=== PATIENT | female | born 1965 | race Caucasian/White ===

== ENCOUNTER 2018-02-06 12:13 | Emergency (ER) | payer SELFPAY ==
[2018-02-06 12:26] VITALS: BP 116/66; PULSE 71; RESP 16; TEMP 36.6; O2SAT 98
--- NOTE | 2018-02-06 12:52 | ED.GENADUL ---
Disposition Clinical Impression: Dental infection Disposition: HOME Condition: Stable Instructions: Dental Abscess (ED) Additional Instructions: Return immediately if you have any difficulty breathing, swallowing, high fever chills, swelling to your tongue or back of her mouth. Otherwise take antibiotics as prescribed and until fully gone and follow up with a dental provider in the next week. If you are unable to follow-up with the dental provider have your primary care provider's reassess you to ensure that you are improving. Prescriptions: Ibuprofen 600 mg PO Q6H PRN #20 tablet PRN Reason: Pain Penicillin V Potassium [Betapen-Vk] 500 mg PO QID #28 tab Referrals: Ale Walls, SEMICONDUCTOR WAFER INSPECTOR [Primary Care Provider] - (As needed for reassessment and if not able to obtain dental appointment.) Forms: Work Release Medical Decision Making - Medical Decision Making pt presenting to the emergency department for complaint of dental pain and swelling of her face that has been going on for last 24 hours. Patient has poor dentition throughout the entirety of oral cavity and area of concern is tooth #11 that has erythema to the base of the tooth, no significant swelling or fluctuance, and tenderness to palpation of that tooth. There is concern for infection so patient placed on penicillin and prescribed ibuprofen. Patient encouraged to follow-up with the dentist in the next week or her primary care provider for reassessment if unable to obtain dental appointment. Patient was given a dental list along with a work note. Patient was offered a dental block but denied at this time. After discussion of diagnosis and plan of care with patient patient agreed and stated no further needs, questions, or concerns at this time. History of Present Illness - General Chief complaint: DentalOral Stated complaint: TOOTH INFECTION Time Seen by Provider: 02/06/18 12:51 Source: patient, RN notes reviewed Mode of arrival: ambulatory Limitations: no limitations - History of Present Illness Initial comments: Patient reports yesterday evening she started having some dental pain to the front of her mouth. She states that she has previously had dental infections which penicillin has helped resolve the swelling pain and redness. She states very poor dentition for a while but lack of funding and resources to get her teeth taken care of. Patient denies any fever chills, difficulty breathing or swallowing. Patient does state that she has noted the left side of her face become slightly swollen and 1 of her tooth that has some cavities alongside a tooth that is missing due to being broken off becoming more painful and some redness surrounding the tooth. Onset/Timin -: days(s) Location: mouth Severity scale (1-10): 7 Quality: aching Consistency: constant Improves with: none Worsens with: none Associated Symptoms: denies other symptoms Treatments Prior to Arrival: NSAID - Related Data Blood Sugar Diagnostic [[employer] Playertouch Ultra Blue Test Strp] 1 strip MC DAILY #100 strip 02/24/16 Lancets [Watchupuch Lancets] 1 each ID DAILY #100 each 02/24/16 Citalopram Hydrobromide [Celexa] 1 tab PO DAILY #90 tab 11/16/16 Lisinopril 2.5 mg PO DAILY #30 tab-cap 11/16/16 Metformin HCl [Glucophage] 1 - 2 tab PO BID #270 tab 11/16/16 Omeprazole 20 mg PO DAILY #90 tab-cap 11/16/16 Fluticasone Propionate [Flonase] 1 spray NS BID #1 bottle 02/15/17 Ibuprofen 600 mg PO Q6H PRN #20 tablet 02/06/18 Penicillin V Potassium [Betapen-Vk] 500 mg PO QID #28 tab 02/06/18 Allergies Allergy/AdvReac Type Severity Reaction Status Date / Time No Known Allergies Allergy Unverified 02/06/18 12:31 Review of Systems Constitutional: denies: chills, fever, malaise ENT: dental pain. denies: throat pain, congestion Respiratory: denies: cough, stridor, wheezing Cardiovascular: denies: chest pain Comment: All other systems reviewed and negative Past Medical History - Past Medical History Medical history: diabetes, GERD Surgical history: cholecystectomy, bilateral tubal ligation, hysterectomy Family history: CAD/LA, diabetes - Social History Smoking status: never smoker Alcohol use: none Drug use: none Living Situation: lives with family General Exam - General Limitations: no limitations General appearance: alert, in no apparent distress - Head Head exam: Present: atraumatic - Eye Eye exam: Present: normal apperance - ENT ENT exam: Present: mucous membranes moist - Expanded ENT Exam No standard instances Mouth exam: Present: tongue normal. Absent: drooling, trismus, muffled voice, tongue elevation Teeth exam: Present: dental caries (Throughout entire oral cavity), fractured tooth # (10. With multiple other fracture or missing teeth), dental tenderness # (11), other (Erythema and mild edema surrounding tooth #1011, no fluctuance noted) Throat exam: normal inspection. negative: R peritonsillar mass, L peritonsillar mass - Neck Neck exam: Present: normal inspection. Absent: tenderness, meningismus, full ROM, lymphadenopathy - Respiratory Respiratory exam: Present: normal lung sounds bilaterally. Absent: respiratory distress, wheezes, rales, rhonchi, stridor - Cardiovascular Cardiovascular Exam: Present: regular rate, normal rhythm, normal heart sounds - Neurological Exam Neurological exam: Present: alert, oriented X3. Absent: altered - Skin Skin exam: Present: warm, dry Course Vital Signs - 24 hr 08//18 12:26 Temperature 36.6 C Pulse 71 Respiratory 16 Rate Blood Pressure 116/66 Pulse Oximetry 98
--- NOTE | 2018-02-06 12:55 | ED.GENADUL_ITS ---
Disposition Clinical Impression: Dental infection Disposition: HOME Condition: Stable Instructions: Dental Abscess (ED) Additional Instructions: Return immediately if you have any difficulty breathing, swallowing, high fever chills, swelling to your tongue or back of her mouth. Otherwise take antibiotics as prescribed and until fully gone and follow up with a dental provider in the next week. If you are unable to follow-up with the dental provider have your primary care provider's reassess you to ensure that you are improving. Prescriptions: Ibuprofen 600 mg PO Q6H PRN #20 tablet PRN Reason: Pain Penicillin V Potassium [Betapen-Vk] 500 mg PO QID #28 tab Referrals: Ale Walls, WATER TREATMENT PLANT OPERATOR [Primary Care Provider] - (As needed for reassessment and if not able to obtain dental appointment.) Forms: Work Release Medical Decision Making - Medical Decision Making pt presenting to the emergency department for complaint of dental pain and swelling of her face that has been going on for last 24 hours. Patient has poor dentition throughout the entirety of oral cavity and area of concern is tooth #11 that has erythema to the base of the tooth, no significant swelling or fluctuance, and tenderness to palpation of that tooth. There is concern for infection so patient placed on penicillin and prescribed ibuprofen. Patient encouraged to follow-up with the dentist in the next week or her primary care provider for reassessment if unable to obtain dental appointment. Patient was given a dental list along with a work note. Patient was offered a dental block but denied at this time. After discussion of diagnosis and plan of care with patient patient agreed and stated no further needs, questions, or concerns at this time. History of Present Illness - General Chief complaint: DentalOral Stated complaint: TOOTH INFECTION Time Seen by Provider: 02/06/18 12:51 Source: patient, RN notes reviewed Mode of arrival: ambulatory Limitations: no limitations - History of Present Illness Initial comments: Patient reports yesterday evening she started having some dental pain to the front of her mouth. She states that she has previously had dental infections which penicillin has helped resolve the swelling pain and redness. She states very poor dentition for a while but lack of funding and resources to get her teeth taken care of. Patient denies any fever chills, difficulty breathing or swallowing. Patient does state that she has noted the left side of her face become slightly swollen and 1 of her tooth that has some cavities alongside a tooth that is missing due to being broken off becoming more painful and some redness surrounding the tooth. Onset/Timin -: days(s) Location: mouth Severity scale (1-10): 7 Quality: aching Consistency: constant Improves with: none Worsens with: none Associated Symptoms: denies other symptoms Treatments Prior to Arrival: NSAID - Related Data Blood Sugar Diagnostic [Chimerixtouch Ultra Blue Test Strp] 1 strip MC DAILY #100 strip 02/24/16 Lancets [Replication Medicaluch Lancets] 1 each ID DAILY #100 each 02/24/16 Citalopram Hydrobromide [Celexa] 1 tab PO DAILY #90 tab 11/16/16 Lisinopril 2.5 mg PO DAILY #30 tab-cap 11/16/16 Metformin HCl [Glucophage] 1 - 2 tab PO BID #270 tab 11/16/16 Omeprazole 20 mg PO DAILY #90 tab-cap 11/16/16 Fluticasone Propionate [Flonase] 1 spray NS BID #1 bottle 02/15/17 Ibuprofen 600 mg PO Q6H PRN #20 tablet 02/06/18 Penicillin V Potassium [Betapen-Vk] 500 mg PO QID #28 tab 02/06/18 Allergies Allergy/AdvReac Type Severity Reaction Status Date / Time No Known Allergies Allergy Unverified 02/06/18 12:31 Review of Systems Constitutional: denies: chills, fever, malaise ENT: dental pain. denies: throat pain, congestion Respiratory: denies: cough, stridor, wheezing Cardiovascular: denies: chest pain Comment: All other systems reviewed and negative Past Medical History - Past Medical History Medical history: diabetes, GERD Surgical history: cholecystectomy, bilateral tubal ligation, hysterectomy Family history: CAD/DE, diabetes - Social History Smoking status: never smoker Alcohol use: none Drug use: none Living Situation: lives with family General Exam - General Limitations: no limitations General appearance: alert, in no apparent distress - Head Head exam: Present: atraumatic - Eye Eye exam: Present: normal apperance - ENT ENT exam: Present: mucous membranes moist - Expanded ENT Exam No standard instances Mouth exam: Present: tongue normal. Absent: drooling, trismus, muffled voice, tongue elevation Teeth exam: Present: dental caries (Throughout entire oral cavity), fractured tooth # (10. With multiple other fracture or missing teeth), dental tenderness # (11), other (Erythema and mild edema surrounding tooth #1011, no fluctuance noted) Throat exam: normal inspection. negative: R peritonsillar mass, L peritonsillar mass - Neck Neck exam: Present: normal inspection. Absent: tenderness, meningismus, full ROM, lymphadenopathy - Respiratory Respiratory exam: Present: normal lung sounds bilaterally. Absent: respiratory distress, wheezes, rales, rhonchi, stridor - Cardiovascular Cardiovascular Exam: Present: regular rate, normal rhythm, normal heart sounds - Neurological Exam Neurological exam: Present: alert, oriented X3. Absent: altered - Skin Skin exam: Present: warm, dry Course Vital Signs - 24 hr 08//18 12:26 Temperature 36.6 C Pulse 71 Respiratory 16 Rate Blood Pressure 116/66 Pulse Oximetry 98
[2018-02-06 13:03] VITALS: BP 116/66; PULSE 71; RESP 16; TEMP 36.6; O2SAT 98
[2018-02-06] MEDS: Penicillin V POTASSIUM 500 MG TAB PO (13:03)
== END 2018-02-06 13:05 | disposition home or self-care (01) ==
PROVIDERS: Emergency Provider Student in an Organized Health Care Education/Training Program; PCP Nurse Practitioner Family
DX: K04.7 Periapical abscess without sinus (principal); E11.9 Type 2 diabetes mellitus without complications; Z79.84 Long term (current) use of oral hypoglycemic drugs
CPT/HCPCS: 99283

== ENCOUNTER 2018-10-11 09:18 | Outpatient (CLI) | payer SELFPAY ==
[2018-10-11 10:52] LABS: Absolute Basophil Count 0.02 k/cumm (0.0-0.2); Absolute Eosinophil Count 0.25 k/cumm (0.0-0.7); Absolute Lymphocyte Count 1.28 k/cumm (1.2-3.4); Absolute Monocyte Count 0.41 k/cumm (0.11-0.7); Absolute Neutrophil Count 2.64 k/cumm (1.2-6.7); Basophils % 0.4; Eosinophils % 5.4; HCT 42.8 % (36.0-46.0); HGB 14.1 g/dL (12.0-15.5); Lymphocytes % 27.8; Mean Corp. HGB Concentration 32.9 g/dL (32.0-36.0); Mean Corpuscular Hemoglobin 31.5 pg (27.0-33.0); Mean Corpuscular Volume 95.7 fL (80-95); Mean Platelet Volume 10.5 fL (8.0-11.0); Monocytes % 8.9; Neutrophils % 57.5; Platelet Count 181 x1000/uL (130-400); RBC 4.47 m/cumm (4.00-5.20); RBC Distribution Width 12.9 % (11.7-14.6)
[2018-10-11 11:35] LABS: ALT 60 U/L (12-78); AST 42 U/L (15-37); Albumin 3.5 g/dL (3.4-5.0); Alkaline Phosphatase 104 U/L (46-116); Anion Gap 8.8 mmol/L (3-11); BUN 10 mg/dL (7-18); Bilirubin, Total 0.5 mg/dL (0.2-1.0); CO2 26.2 mmol/L (21.0-32.0); CREATININE 0.62 mg/dL (0.55-1.02); Calcium 8.6 mg/dL (8.5-10.1); Chloride 102 mmol/L (98-107); FREE T4 0.91 ng/dL (0.76-1.46); Glucose 198 mg/dL (70-100); Potassium 4.3 mmol/L (3.5-5.1); Sodium 137 mmol/L (136-145); TSH 1.72 uIU/mL (0.358-3.74); Total Protein 7.3 g/dL (6.4-8.2)
[2018-10-11 11:56] LABS: Cholesterol 206 mg/dL (50-200); HDL Cholesterol 53 mg/dL (40-60); LDL CHOLESTEROL 133 mg/dL (<100); Triglyceride 85 mg/dL (30-150)
== END 2018-10-11 09:38 ==
PROVIDERS: PCP Nurse Practitioner Family; Visit Provider Nurse Practitioner Family
DX: E11.9 Type 2 diabetes mellitus without complications (principal); E78.5 Hyperlipidemia, unspecified
CPT/HCPCS: 36415; 80053; 80061; 83721; 83036; 84439; 84443; 85025

== ENCOUNTER 2018-12-04 00:13 | Outpatient (CLI) | payer OTHER, SELFPAY ==
--- NOTE | 2018-12-04 08:40 | DI.MAMMO_ITS ---
SYMPTOM/DIAGNOSIS: SCREENING, Z12.31 MAMMOGRAMS: Mammograms were interpreted according to the usual protocol including computer analysis with CAD system, tomosynthesis and C view imaging. Comparison is made with exams from [id number]. The breasts are composed of scattered fibroglandular densities, breast density, Category B. No suspicious masses or suspicious microcalcifications are seen. There has been no significant change. IMPRESSION: Category 1, negative mammogram. Yearly screening mammography is recommended. [facility] ASSESSMENT OF FINDINGS: Negative. Category 1. Patient will receive a letter notifying them of these results. BI-RADS category B. There are scattered areas of fibroglandular density.
== END 2018-12-04 00:33 ==
PROVIDERS: PCP Nurse Practitioner Family; Visit Provider Nurse Practitioner Family
DX: Z12.31 Encounter for screening mammogram for malignant neoplasm of breast (principal)
CPT/HCPCS: 77063; 77067

== ENCOUNTER 2020-03-05 14:44 | Outpatient (REF) | payer MEDICAID, SELFPAY ==
[2020-03-05 13:52] LABS: Hemoglobin A1C 8.4 % (<5.7)
[2020-03-05 13:59] LABS: Anion Gap 5.9 mmol/L (3-11); BUN 9 mg/dL (7-18); CO2 30.1 mmol/L (21.0-32.0); CREATININE 0.72 mg/dL (0.55-1.02); Calculated LDL 71 mg/dL (<100); Chloride 103 mmol/L (98-107); Cholesterol 148 mg/dL (<200); Glucose 278 mg/dL (74-106); HDL Cholesterol 54 mg/dL (40-60); Potassium 4.9 mmol/L (3.5-5.1); Sodium 139 mmol/L (136-145); Triglyceride 117 mg/dL (<150)
== END 2020-03-05 15:04 ==
LOC: LBN 14:44
PROVIDERS: PCP Nurse Practitioner Family; Visit Provider Nurse Practitioner Family
DX: E78.5 Hyperlipidemia, unspecified (principal); E11.9 Type 2 diabetes mellitus without complications
CPT/HCPCS: 80048; 80061; 83036

== ENCOUNTER 2020-03-23 00:34 | Outpatient (CLI) | payer MEDICAID, SELFPAY ==
--- NOTE | 2020-03-23 08:37 | DI.MAMMO_ITS ---
EXAM: MG MAMMO SCREENING CLINICAL HISTORY: screening,Z12.39 TECHNIQUE: Mammograms were interpreted according to the usual protocol including computer analysis w [employer] CAD system, tomosynthesis and C-view imaging. COMPARISON: FINDINGS: The breasts are of moderate density with fairly symmetrical distribution of fibroglandular tissue. N o dominant mass or clumped microcalcification is identified in either breast. The current examinatio n is compared with previous studies including November 2018 and there has been no gross interval change i n appearance in comparison with the previous examinations. IMPRESSION: No specific evidence of malignancy at this time. Routine screening examinations are suggested at yea rly intervals in this age group according to the ACS ACR guidelines. BI-RADS Category 1 - Negative Breast Density - Category B - Scattered areas of fibroglandular density
== END 2020-03-23 00:54 ==
PROVIDERS: PCP Nurse Practitioner Family; Visit Provider Nurse Practitioner Family
DX: Z12.31 Encounter for screening mammogram for malignant neoplasm of breast (principal)
CPT/HCPCS: 77063; 77067

== ENCOUNTER 2020-07-21 02:29 | Outpatient (CLI) | payer MEDICAID, SELFPAY ==
[2020-07-22 12:42] LABS: COVID-19 RT-PCR UVMMC Result Negative (Negative)
== END 2020-07-21 02:30 | disposition home or self-care (01) ==
LOC: LBO 02:29
PROVIDERS: PCP Nurse Practitioner Family; Visit Provider Surgery
DX: Z11.52 Encounter for screening for COVID-19 (principal); Z01.818 Encounter for other preprocedural examination
CPT/HCPCS: U0003

== ENCOUNTER 2020-07-24 10:43 | Day surgery (SDC) | payer MEDICAID, SELFPAY ==
[2020-07-24 10:48] VITALS: BP 116/64; PULSE 61; RESP 18; TEMP 36.6; O2SAT 98
[2020-07-24] MEDS: Lactated Ringers 1,000 ML 80 ML IV ×2 (11:11→12:04)
--- NOTE | 2020-07-24 12:54 | W.COLOREPORT ---
Date of service: 07/24/20 Time of Service: 12:55 Colonoscopy Report Date of procedure: 07/24/20 Pre-op diagnosis general: CRC screen Post-op diagnosis procedure note: other Surgeon: Emma Bob Anesthesia proc note operative: GETA Estimated blood loss (mL): 0 Pathology: none sent Disposition: same day Prep: Miralax/Dulcolax Retraction Time: 8 mins Procedure Description: After informed consent was obtained the patient was taken to the procedure room and placed in a left decubitous position. Monitors were applied and a time out was done. The patients name, date of , procedure, allergies to medications and metal in their body was reviewed. The patient was then sedated. Once sedated and comfortable a rectal exam was done. External exam was normal. Internal exam revealed a normal sphincter tone and no palpable masses. The scope was then introduced and retrofelexed. no internal hemorrhoids were identified. The scope was then advanced to the cecum w/out difficulty. The TI and appendiceal orifice were identified. The prep was good. The scope was then slowly retracted over 8 minutes back into the rectum. There are no polyps, AVMs, or diverticula apparent. Mucosa appears pink and healthy. The scope was removed and the patient was woken up and taken back to Same day surgery in stable condition. The patient tolerated the procedure well and there were no immediate complications. Follow up: The patient should follow up in 10 years unless they develop changes in bowel habits or other new gastrointestinal complaints.
--- NOTE | 2020-07-24 12:57 | W.PM.DSUDISC ---
Discharge Plan Disposition Patient Disposition: HOME Condition: Good Discharge Details Reason For Visit: colon scope Attending Provider: Emma Bob Primary Care Provider: Ale Walls Home Meds and New Rx's Prescriptions: Continued fluticasone propionate 50 mcg/actuation spray,suspension 1 spray NS BID PRNRF: 0 chlorhexidine gluconate 0.12 % mouthwash 15 ml buccal BID Qty: 473 RF: 0 citalopram [Celexa] 40 mg tablet 40 mg PO DAILY Qty: 90 RF: 4 metformin [Glucophage] 500 mg tablet 1,000 mg PO BID Qty: 360 RF: 4 rosuvastatin 10 mg tablet 10 mg PO DAILY Qty: 90 RF: 4 glipizide 10 mg tablet extended release 24hr 10 mg PO DAILY Qty: 90 RF: 4 nystatin 100,000 unit/gram cream 1 applic topical BID PRN (Reason: rash) Qty: 30 RF: 2 Discharge Instructions Additional Instructions: Findings:normal Follow up:repeat in 10 yrs time Please call if you develop: fevers >101.5 Nausea or Vomiting Abdominal pain that is not transient DAY SURGERY UNIT POST COLONOSCOPY INSTRUCTIONS 1. Because there will be medication in your system for the next 24 hours, you may feel a little sleepy. Your coordination will be affected. Therefore: a. Do not drive or operate dangerous equipment for 24 hours. b. Do not drink alcohol beverages for 24 hours (not even beer). c. Plan to go home and rest for the day. 2. Generally there are no restrictions on your activity after a day or so has gone by, but you may feel a bit fatigued for a few days. 3 After you arrive home you may have a light meal and return to a normal diet as you can tolerate it without feeling sick to your stomach. 4. After surgery, you may feel pain or discomfort. This should be only transient, but if it persists please contact your doctor. 5. If there are any questions regarding the findings of your procedure, please feel free to contact your doctor. 6. If you are unable to contact your doctor with a problem, contact the hospital at [phone]. 7. Continue all your regular medications unless directed otherwise. I understand the above instructions and have no questions. Signature of Patient or Responsible Adult Escort Date/Time Name of Responsible Adult Escort Signature of Nurse Date/Time Activity:: No lifting over 20 pounds or strenuous activity x24 hours. Diet:: Small light meals x24 hours Discharge Orders Discharge Orders: Discharge Order (Routine); Ordered 07/24/20 Ordered By: Emma Bob DS: Diagnosis Discharge Diagnosis (1) Colon cancer screening: Status: Acute
[2020-07-24 13:10] VITALS: BP 104/59; PULSE 70; RESP 17; TEMP 36.6; O2SAT 97
== END 2020-07-24 14:10 | disposition home or self-care (01) ==
PROVIDERS: PCP Nurse Practitioner Family; Visit Provider Surgery
PROC: 0DJD8ZZ Inspection of Lower Intestinal Tract, Via Natural or Artificial Opening Endoscopic (ICD-10-PCS; CPT 45378; principal; 2020-07-24 12:15)
DX: Z12.11 Encounter for screening for malignant neoplasm of colon (principal)
CPT/HCPCS: 45378

== ENCOUNTER 2020-09-11 10:03 | Outpatient (REF) | payer MEDICAID, SELFPAY ==
--- OUTSIDE RECORDS SUMMARY | 2020-09-11 10:07 | XMS_ITS ---
:1965 Author Care Team Providers Name Role Phone [facility] REC[facility]DS Primary Care Provider [phone] SALMA OSEGUERA NP Primary Care Provider [phone] ROSS SALCIDO MD, BOARD CERTIFIED SLEEP PHYSICIAN Sleep Medici ne Unavailable Allergies Code Code System Name Reaction Severity Status Onset NKDA ? Medications Name Status Start Date Stop Date ? ? citalopram 40 mg tablet Active ? Not avai lable Take 1 tablet every day by oral route. lisinopril 2.5 mg tablet Active ? Not keesha ilable Take 1 tablet every day by oral route. meclizine 25 mg tablet Active ? Not avail able Take 1 tablet 3 times a day by oral route. metformin 500 mg tablet Active ? Not avai lable TAKE 1-2 TABLET (500 MG) BY ORAL ROUTE 2 TIMES PER DAY WITH MORNING ANDEVENING MEALS omeprazole 20 mg capsule,delayed release Active ? Not available Take 1 capsule every day by oral route. Slow-Mag 71.5 mg tablet,delayed release Active ? Not available Take 1 tablet twice a day by oral route for 30 days. zolpidem 5 mg tablet Completed ? 06/18/2020 Take 1-2 PO night of sleep study if needed Problems Name Status Onset Date Source ? Cramp in Lower Leg Associated with Rest Active 03/17/20 20 ? Snoring Active 03/17/2020 ? Type 2 Diabetes Mellitus without Active ? History Complication Severe Obesity Active ? History Depressive Disorder Active ? History Obstructive Sleep Apnea Syndrome Active ? ? Hearing Loss of Right Ear Active ? Histor y Disorder of Stomach Active ? History Disorder of [place] Active ? History Intermenstrual Bleeding - Irregular Active ? History Low Back Pain Active ? History Lack of Energy Active ? History Apnea Active ? History Procedures Date Name Performed by ? ? Cholecystectomy Information not avai lable ? Hysterectomy Information not avai lable ? Tubal Ligation Information not avai lable 03/17/2020 Polysomnogram Information not avai lable Results Lab Results None recorded. Past Encounters 06/18/2020 Obstructive Sleep Apnea Syndrome Flavia Gooden GAS MANAGER: [address] [place] [phone], Ph. 03/17/2020 Snoring; Cramp in Lower Leg Associated w ith Rest Flavia Gooden GAS MANAGER: [address] [place] [phone], Ph. Social History Tobacco Smoking Status Never Smoker Vaccine List None recorded. Plan of Care Reminders Provider Appointments None ? ? recorded. Lab None ? ? recorded. Referral None ? ? recorded. Procedures None ? ? recorded. Surgeries None ? ? recorded. Imaging None ? ? recorded. Vitals 06/18/2020 08:30AM Office 30 Height Weight BMI 165.1 cm 92.08 kg 33.8 kg/m2 03/17/2020 08:00AM New Patient 46 Height Weight BMI Blood Pressure 165.1 cm 92.26 kg 33.8 kg/m2 130/82 mm[Hg] 04/20/2017 Height Blood Pressure 162.56 cm 114/76 mm[Hg] 04/20/2017 Weight 101.26 kg
--- OUTSIDE RECORDS SUMMARY | 2020-09-11 10:07 | XMS_ITS | Encounter Summary ---
:1965 Author Care Team Providers Name Role Phone [facility] Medical Records Primary Care Provider [phone] Ale Walls NP Primary Care Provider [phone] Najma Palacios MD, Board Certified Sleep Physician Sleep Medici ne Unavailable Reason for Visit Telehealth visit - Patient at home Assessment and Plan Assessment Note This visit was performed virtually using synchronous audio-visual connection via Zoom. As such, the physical examination is necessarily limited. The risks and benefits of the use of this alternative platform were discussed with the parent and verbal consent was obtained. My assessme nt and plans are based on such examination. Further evaluation, including in-person examination, may be needed depending on the response to management or today's recomm endation. 1. Obstructive sleep apnea syndr ome JACKIE with an AHI of 12.2/hr jessy gnosed on HST which may underestimate the severity of JACKIE. I discussed treatment options to include oral appliance, ENT surgery and CPAP therapy and the advantage s and disadvantages of each. She has shantanu y poor dentition and saw an oral surgeon yesterday and needs to have al her teeth removed so she is NOT a candidate for an oral appliance. She is willing to start CPAP. CPAP 6-16cm is ordered. I discuss ed different mask options and the importance of finding the mask that will work for her within the first 30 days. I discussed how to adjust humidity for dryness/c ongestion and that the goal will be to u se nightly for her total sleep time. I covered insurance compliance requirements and the DME's mask exchange policy. She will have a titration study for fine praful ng of therapy and to ensure adequate oxy genation on CPAP therapy. I will see her back between 31-90 days after starting CPAP and she is encouraged to call me sooner if she is having any difficulties iris erating CPAP. Drowsy driving precautions were reviewed I provided greater than 25 minutes in th e care of this patient, more than half the time was spent in [id number] counseling. ? CPAP machine Discussion Note: None recorded.Patient educational handouts: No information available. Plan of Care Reminders Provider Appointments Office 30 11/25/2020 Alli Gooden, 11:00AM COMMERCIAL CREDIT REVIEWER Lab None ? ? recorded. Referral None ? ? recorded. Procedures None ? ? recorded. Surgeries None ? ? recorded. Imaging None ? ? recorded. Medications Name Start Date ? ? citalopram 40 mg tablet ? Take 1 tablet every day by oral route. lisinopril 2.5 mg tablet ? Take 1 tablet every day by oral route. meclizine 25 mg tablet ? Take 1 tablet 3 times a day by oral route. metformin 500 mg tablet ? TAKE 1-2 TABLET (500 MG) BY ORAL ROUTE 2 TIMES PER DAY WITH MORNING ANDEVENING MEALS omeprazole 20 mg capsule,delayed release ? Take 1 capsule every day by oral route. Slow-Mag 71.5 mg tablet,delayed release ? Take 1 tablet twice a day by oral route for 30 days. Medications Administered None recorded. Vitals Height Weight BMI 5 ft 5 in 203 lbs 33.8 kg/m2 Results Lab Results None recorded. Allergies Code Code System Name Reaction Severity Onset NKDA ? ? ? Problems Name Status Onset Date Source ? [...] ? Tubal Ligation Information not avai lable Vaccine List None recorded. Social History Tobacco Smoking Status Never Smoker Alcohol intake None Live alone or with others? with others Animal exposure? Y Notes: 1 dog Are you currently employed? Y Blind or serious difficulty seeing Y Not es: getting glasses Hard of hearing or deaf in one or Y Note s: some issues both ears? Caffeine intake Occasional Notes: 1 cup in t he morning, diet soda once every other day Functional Status Blind or serious Yes difficulty seeing? Past Encounters 06/18/2020 Obstructive Sleep Apnea Syndrome Flavia Gooden, COMMERCIAL CREDIT REVIEWER: [address] [place] [phone], Ph. History of Present Illness Note: <p>Thea Davis has a Zoom visit or HST results. She has given consent to have a telehealth visit. Patient is at home, provider is in the office</p><p>
</p><p>Thea was seen by me on 03/17/20. She has a medical history to include DM, obesity and depression.& lt;/p><p>
</p><p>She noted symptoms of loud snoring, nocturnal gasping, excessive daytime sleepiness and occasional morning headaches. PSG ordered last visit and denied by insurance.</p><p>
</p><p>HST 06/04/20 (BMI 33.78) and I reviewed heresults with her in detail today. AHI 12.2/hr, supine AHI 12/hr, right and left lateral AHI N/A, sp02 will 86%, 59 minutes spent with 02 saturation <88%. Intermittent snoring heard.</p>&lt ;p>
</p><p>Thea tells me her sleep the night of the study was similar compared to a typical night at home but a little more uncomfortable. She go up once to urinate. She still has above symptoms with no new sleep complaints today.</p>Review of Systems: ROS as noted in the HPI Review of Systems None recorded. Physical Exam ? Notes: <p>N/A</p>
[2020-09-11 13:21] LABS: COMMENT (LAB VIEW ONLY) 158.29 mg/dL; Microalb ug/mg Crea 9.3 ug/mg Cr
== END 2020-09-11 10:04 | disposition home or self-care (01) ==
LOC: LBN 10:03
PROVIDERS: PCP Nurse Practitioner Family; Visit Provider Nurse Practitioner Family
DX: E11.9 Type 2 diabetes mellitus without complications (principal)
CPT/HCPCS: 82043; 82570

== ENCOUNTER 2021-04-14 15:54 | Outpatient (REF) | payer MEDICAID, SELFPAY ==
[2021-04-16 10:25] LABS: COVID-19 RT-PCR UVMMC Result Negative (Negative)
== END 2021-04-14 15:55 | disposition home or self-care (01) ==
LOC: LBN 15:54
PROVIDERS: PCP Nurse Practitioner Family; Visit Provider Family Medicine
DX: Z20.822 Contact with and (suspected) exposure to COVID-19 (principal); R05.8 Other specified cough
CPT/HCPCS: U0003

== ENCOUNTER 2021-06-04 20:41 | Outpatient (REF) | payer MEDICAID, SELFPAY ==
[2021-06-06 10:34] LABS: COVID-19 RT-PCR UVMMC Result Negative (Negative)
== END 2021-06-04 20:42 | disposition home or self-care (01) ==
LOC: LBN 20:41
PROVIDERS: PCP Nurse Practitioner Family; Visit Provider Family Medicine
DX: Z20.822 Contact with and (suspected) exposure to COVID-19 (principal)
CPT/HCPCS: U0003

== ENCOUNTER 2021-09-10 01:56 | Outpatient (CLI) | payer MEDICAID, SELFPAY ==
--- NOTE | 2021-09-10 12:00 | DI.MAMMO_ITS ---
Exam(s) MAMMO SCREENING EXAM: MAMMO SCREENING CLINICAL HISTORY: screening,z12.39 TECHNIQUE: Bilateral full field digital CC and MLO mammographic images were obtained with 3D tomosyn thesis and utilizing computer aided detection (CAD). COMPARISON: Available for comparison. FINDINGS: Masses/Architectural Distortion: None seen. Microcalcifications: No suspicious pleomorphic-type are seen. Skin Thickening/Nipple Retraction: None. IMPRESSION: 1. No significant interval change with no specific features of malignancy noted. 2. Unless there is more urgent need, screening mammography is recommended, as per [employer] guidelines. BI-RADS Category 1 - Negative Breast Density - Category B - Scattered areas of fibroglandular density Breast density category C or D implies that the patient has dense breast tissue. Dense breast tissue is very common and is not abnormal but dense breast tissue can make it harder to find cancer on a ma mmogram. Also, dense breast tissue may increase their breast cancer risk. This information about the result of the mammogram report was provided to the patient to raise their awareness. Use this report when you speak with the patient about their risks for breast cancer, which includes their family hist ory. At that time, you may recommend for more screening tests (Ultrasound or MRI) as they might be us eful based on their risk. A negative radiographic report should not delay biopsy if a dominant or clinically suspicious mass is present. Up to ten percent of cancers are not identified on mammography. A negative report may reinforce clinical impression. Adenosis and dense breasts may obscure an underlying neoplasm. False positive reports average 6 to 10%. Patient will receive a letter notifying them of these results.
== END 2021-09-10 02:16 ==
PROVIDERS: PCP Nurse Practitioner Family; Visit Provider Nurse Practitioner Family
DX: Z12.31 Encounter for screening mammogram for malignant neoplasm of breast (principal)
CPT/HCPCS: 77063; 77067

== ENCOUNTER 2021-09-16 17:19 | Outpatient (REF) | payer MEDICAID, SELFPAY ==
[2021-09-16 15:01] LABS: COMMENT (LAB VIEW ONLY) 32.58 mg/dL; Microalb ug/mg Crea 13.8 ug/mg Cr
[2021-09-16 15:17] LABS: Anion Gap 8.2 mmol/L (3-11); BUN 8 mg/dL (7-18); CO2 26.8 mmol/L (21.0-32.0); CREATININE 0.8 mg/dL (0.55-1.02); Calcium 8.7 mg/dL (8.5-10.1); Calculated LDL 70 mg/dL (<100); Chloride 102 mmol/L (98-107); Cholesterol 141 mg/dL (<200); Glucose 295 mg/dL (74-106); HDL Cholesterol 52 mg/dL (40-60); Potassium 3.7 mmol/L (3.5-5.1); Sodium 137 mmol/L (136-145); Triglyceride 99 mg/dL (<150)
== END 2021-09-16 17:20 | disposition home or self-care (01) ==
LOC: LBN 17:19
PROVIDERS: PCP Nurse Practitioner Family; Visit Provider Nurse Practitioner Family
DX: E11.9 Type 2 diabetes mellitus without complications (principal)
CPT/HCPCS: 80048; 80061; 82043; 82570

== ENCOUNTER 2021-11-09 12:00 | Emergency (ER) | payer MEDICAID, SELFPAY ==
[2021-11-09 12:20] VITALS: BP 135/71; PULSE 51; RESP 18; TEMP 36.6; O2SAT 99
--- NOTE | 2021-11-09 12:30 | RT.EKG_ITS ---
APPROVED REPORT Exam: Resting ECG Reason for Exam: dizziness Patient Location: E HR:52 bpm ECG Measurements Heart Rate 52 AXIS VT 170 P 67 QRSd 105 QRS 26 QT 509 T 19 QTc 473 Conclusion Sinus bradycardia...rate< 60
--- NOTE | 2021-11-09 12:39 | W.ED.GENAD ---
Discharge Plan Disposition Patient Disposition: HOME Condition: Improving Discharge Details Clinical Impression: Benign paroxysmal positional vertigo of left ear, Type 2 diabetes mellitus Primary Care Provider: Ale Walls ED Provider: Ronn Wilkinson Home Meds and New Rx's Prescriptions: New meclizine 25 mg tablet 25 mg PO TID PRN (Reason: dizziness) Qty: 20 0RF ondansetron 4 mg tablet,disintegrating 4 mg PO Q8H PRN (Reason: nausea and vomiting) Qty: 14 0RF Continued fluticasone propionate 50 mcg/actuation spray,suspension 1 spray NS BID PRN (Reason: nasal congestion) Qty: 16 1RF (DME) FreeStyle Dolly 14 Day Fielding Misc See Rx Instructions .MEDSUPPLY Qty: 1 4RF Rx Instructions: Continuous glucose monitor clotrimazole 1 % cream 1 applic topical BID Qty: 45 0RF Rx Instructions: Apply to affected areas twice a dayfor 2-4wks (DME) FreeStyle Dolly 14 Day Sensor Kit See Rx Instructions .MEDSUPPLY Qty: 6 4RF Rx Instructions: Continuous glucose monitor glipizide 10 mg tablet extended release 24hr 20 mg PO DAILY Qty: 180 4RF Rx Instructions: Take 2 pill daily 30min before breakfast Jardiance 25 mg tablet 25 mg PO DAILY Qty: 90 3RF Rx Instructions: Take 1 tablet daily metformin 500 mg tablet 1,000 mg PO BID Qty: 360 3RF Rx Instructions: Take 2 tablets in the morning and 2 tablets in the evening citalopram [Celexa] 40 mg tablet 40 mg PO DAILY Qty: 90 3RF rosuvastatin 10 mg tablet 10 mg PO DAILY Qty: 90 4RF Discharge Instructions Instructions: Benign Paroxysmal Positional Vertigo (ED) Additional Instructions: Please take your medication as prescribed and stay well-hydrated. It is very important that you take your diabetes medications as your blood sugar was noted to be elevated during today's visit. If you have any new or significant worsening of symptoms feel free to return to the emergency department as discussed otherwise if not improving in the next week please follow-up with your primary care provider for reassessment. Over the next week also avoid any rapid head movements or position changes as this may cause your symptoms to worsen. Stand Alone Forms: Work Release Referrals: Ale Walls NP [Primary Care Provider] - 1 week (If not improving) Discharge Data Discharge Date/Time-TO BE ENTERED AT DEPARTURE: 11/09/21 15:46 Medical Decision Making Patient presenting to the emergency department with chief complaint of dizziness, weak, and nausea. She does state that this feels somewhat similar to previous episodes of vertigo but she is also concerned due to her daughter testing positive for COVID this morning and has had multiple positive contacts over the last couple weeks. Patient reports mild headache but denies other focal neurological findings. Patient is a type I diabetic with poor control obstructive who also has had vertigo in the past and suffers from anxiety. Physical exam shows alert and oriented patient who does appear anxious, dizziness is precipitated by sitting up but laying down seems to help her symptoms. She does have slight nystagmus to the left otherwise neurological cardiac respiratory and other genital exam is unremarkable. Neg Hints exam, doubt CVA. Chief working diagnosis is BPPV, also consider the patient is bradycardic, and has had viral exposure. We will also consider possible glycemic issues. Pending laboratory work-up including EKG we will give patient fluids, meclizine, and Zofran. Fingerstick is 233 which review of old records shows that patient A1c is typically 8 mm. This is not far off from patient's baseline. Reassessed after Fluids and meds and states no further dizziness but continued mild Headache. Will give tordol pending UA results. UA results show no concerning findings for infection but hematuria is noted. Reflex culture was ordered by lab but do not feel this is contributing to patient's current symptoms. Patient denies any urinary symptoms. Patient reassessed and states continued significant improvement. We will plan on discharging patient with prescription for meclizine and Zofran and encouraging return to emergency department for any new or worsening symptoms otherwise to follow-up with primary care provider. After discussion of diagnosis and plan of care patient has no further needs, questions, or concerns and states clear understanding to return to the emergency department for any worsening symptoms. Lab Data Lab results reviewed: Yes I reviewed the patient's lab results. Labs: Laboratory Tests Range/Units 11/09/21 11/09/21 11/09/21 13:30 13:31 13:31 WBC (4.4-10.8) 10^3/uL 5.55 RBC (3.93-5.22) 10^6/uL 4.60 Hgb (11.2-15.7) g/dL 14.3 Hct (36.0-46.0) % 43.6 MCV (80-95) fL 95 MCH (27.0-33.0) pg 31.1 MCHC (32.0-36.0) % 32.8 RDW (11.7-14.6) % 12.4 Plt Count (130-400) 10^3/uL 178 MPV (8.0-11.0) fL 9.9 Immature Gran % 0.2 Neutrophils % 70.0 Lymphocytes % 20.2 Monocytes % 7.0 Eosinophils % 2.2 Basophils % 0.4 Nucleated RBC % (0.0-0.3) % 0.0 Absolute Neutrophils (1.2-6.7) 10^3/uL 3.89 Absolute Lymphocytes (1.2-3.4) 10^3/uL 1.12 L Absolute Monocytes (0.1-0.8) 10^3/uL 0.39 Absolute Eosinophils (0.0-0.7) 10^3/uL 0.12 Absolute Basophils (0.0-0.2) 10^3/uL 0.02 Sodium (136-145) mmol/L 143 Potassium (3.5-5.1) mmol/L 3.9 Chloride (98-107) mmol/L 106 Carbon Dioxide (21.0-32.0) mmol/L 27.5 Anion Gap (3-11) mmol/L 9.5 BUN (7-18) mg/dL 11 Creatinine (0.55-1.02) mg/dL 0.8 Estimated GFR/1.73 m2 (mL/min/1.73m2) >= 60.00 Glucose (74-106) mg/dL 190 H Calcium (8.5-10.1) mg/dL 8.9 Magnesium (1.8-2.4) mg/dL 2.0 Total Bilirubin (0.2-1.0) mg/dL 0.4 AST (15-37) U/L 28 ALT (14-59) U/L 37 Alkaline Phosphatase (46-116) U/L 104 Troponin I (<or=60) ng/L < 50 Total Protein (6.4-8.2) g/dL 7.9 Albumin (3.4-5.0) g/dL 4.0 Urine Color (Yellow) Urine Clarity (Clear) Urine pH (5-8) Ur Specific Cowley (1.005-1.025) Urine Protein (Negative) mg/dL Urine Ketones (Negative) mg/dL Urine Blood (Negative) Urine Nitrite (Negative) Urine Bilirubin (Negative) Urine Urobilinogen (Up TO 0.2) EU/dL Ur Leukocyte Esterase (Negative) Urine Glucose (Negative) mg/dL COVID-19 Source Nasopharynx SARS-CoV-2 (PCR) (Negative) Negative Influenza Type A (PCR) (Negative) Negative Influenza Type B (PCR) (Negative) Negative RSV (PCR) (Negative) Negative Range/Units 11/09/21 14:42 WBC (4.4-10.8) 10^3/uL RBC (3.93-5.22) 10^6/uL Hgb (11.2-15.7) g/dL Hct (36.0-46.0) % MCV (80-95) fL MCH (27.0-33.0) pg MCHC (32.0-36.0) % RDW (11.7-14.6) % Plt Count (130-400) 10^3/uL MPV (8.0-11.0) fL Immature Gran % Neutrophils % Lymphocytes % Monocytes % Eosinophils % Basophils % Nucleated RBC % (0.0-0.3) % Absolute Neutrophils (1.2-6.7) 10^3/uL Absolute Lymphocytes (1.2-3.4) 10^3/uL Absolute Monocytes (0.1-0.8) 10^3/uL Absolute Eosinophils (0.0-0.7) 10^3/uL Absolute Basophils (0.0-0.2) 10^3/uL Sodium (136-145) mmol/L Potassium (3.5-5.1) mmol/L Chloride (98-107) mmol/L Carbon Dioxide (21.0-32.0) mmol/L Anion Gap (3-11) mmol/L BUN (7-18) mg/dL Creatinine (0.55-1.02) mg/dL Estimated GFR/1.73 m2 (mL/min/1.73m2) Glucose (74-106) mg/dL Calcium (8.5-10.1) mg/dL Magnesium (1.8-2.4) mg/dL Total Bilirubin (0.2-1.0) mg/dL AST (15-37) U/L ALT (14-59) U/L Alkaline Phosphatase (46-116) U/L Troponin I (<or=60) ng/L Total Protein (6.4-8.2) g/dL Albumin (3.4-5.0) g/dL Urine Color (Yellow) Yellow Urine Clarity (Clear) Clear Urine pH (5-8) 7.5 Ur Specific Cowley (1.005-1.025) 1.015 Urine Protein (Negative) mg/dL Negative Urine Ketones (Negative) mg/dL Negative Urine Blood (Negative) Negative Urine Nitrite (Negative) Negative Urine Bilirubin (Negative) Negative Urine Urobilinogen (Up TO 0.2) EU/dL 0.2 Ur Leukocyte Esterase (Negative) Negative Urine Glucose (Negative) mg/dL 500 H COVID-19 Source SARS-CoV-2 (PCR) (Negative) Influenza Type A (PCR) (Negative) Influenza Type B (PCR) (Negative) RSV (PCR) (Negative) HPI General Mode of arrival: ambulatory. Date/Time Provider Initiated Documentation: 11/09/21 12:09. Limitations to Documentation: no limitations. Information obtained by: patient, RN notes reviewed and old records reviewed. History of Present Illness 56 year old F presents to the emergency department with the chief complaint of Weakness dizziness, and fatigue, described as moderate and similar to prior episodes, with intensity rated at 2. Quality is described as aching, and is localized to the head. Patient reports no radiation. Patient started experiencing this hour(s) (1) and it has been constant. No relieving factors improve symptom(s), Movement worsens symptoms . Patient notes headaches, malaise, nausea/vomiting and weakness. Patient did receive the following treatments prior to arrival, none Related Data Home Medications Medication Instructions Recorded Confirmed flash glucose scanning reader #1 ea 09/11/20 09/16/21 (Register My Infoe 14 Day Fielding) rosuvastatin 10 mg tablet 10 mg PO DAILY #90 tabs 01/20/21 09/16/21 fluticasone propionate 50 1 spray NS BID PRN nasal 06/04/21 09/16/21 mcg/actuation nasal congestion #16 grams spray,suspension citalopram 40 mg tablet (Celexa) 40 mg PO DAILY #90 tabs 09/16/21 09/16/21 clotrimazole 1 % topical cream 1 applic topical BID #45 grams 09/16/21 09/16/21 empagliflozin 25 mg tablet 25 mg PO DAILY #90 tabs 09/16/21 09/16/21 (Jardiance) flash glucose sensor (FreeStyle #6 ea 09/16/21 09/16/21 Dolly 14 Day Sensor kit) glipizide 10 mg tablet, extended 20 mg PO DAILY #180 tab-caps 09/16/21 09/16/21 release 24 hr metformin 500 mg tablet 1,000 mg PO BID #360 tabs 09/16/21 09/16/21 meclizine 25 mg tablet 25 mg PO TID PRN dizziness #20 tabs 11/09/21 ondansetron 4 mg disintegrating 4 mg PO Q8H PRN nausea and 11/09/21 tablet vomiting #14 tabs Previous Rx's Medication Instructions Recorded flash glucose scanning reader #1 ea 09/11/20 (FreeStyle Dolly 14 Day Fielding) rosuvastatin 10 mg tablet 10 mg PO DAILY #90 tabs 01/20/21 fluticasone propionate 50 1 spray NS BID PRN nasal 06/04/21 mcg/actuation nasal congestion #16 grams spray,suspension citalopram 40 mg tablet (Celexa) 40 mg PO DAILY #90 tabs 09/16/21 clotrimazole 1 % topical cream 1 applic topical BID #45 grams 09/16/21 empagliflozin 25 mg tablet 25 mg PO DAILY #90 tabs 09/16/21 (Jardiance) flash glucose sensor (FreeStyle #6 ea 09/16/21 Dolly 14 Day Sensor kit) glipizide 10 mg tablet, extended 20 mg PO DAILY #180 tab-caps 09/16/21 release 24 hr metformin 500 mg tablet 1,000 mg PO BID #360 tabs 09/16/21 meclizine 25 mg tablet 25 mg PO TID PRN dizziness #20 tabs 11/09/21 ondansetron 4 mg disintegrating 4 mg PO Q8H PRN nausea and 11/09/21 tablet vomiting #14 tabs Allergies Allergy/AdvReac Type Severity Reaction Status Date / Time No Known Allergies Allergy Verified 09/16/21 09:39 General Stated Complaint: GenMedical WILNER: 3 Review of Systems Constitutional Constitutional: Denies body ache(s), Denies chills, Denies fever(s), Reports headache(s) and Reports malaise Eyes Eyes: Denies change in vision ENT Ears, Nose, Mouth, and Throat: Reports dizziness, Denies otalgia, Reports headache(s) and Denies nasal congestion Cardiovascular Cardiovascular: Denies chest pain, Denies syncope and Reports dyspnea Respiratory Respiratory: Denies cough and Reports dyspnea Gastrointestinal Gastrointestinal: Denies abdominal pain, Reports nausea and Denies vomiting Neurologic Neurologic: Reports as per HPI, Denies confusion, Reports dizziness, Denies syncope, Reports headache(s), Denies localized weakness and Denies sensory deficit Psychiatric Psychiatric: Denies confusion PFSH All Active Problems (Updated 11/09/21 @ 15:29 by Ronn Wilkinson NP) Benign paroxysmal positional vertigo of left ear (Acute) Type 2 diabetes mellitus (Chronic) Hyperlipidemia (Chronic) Major depressive disorder (Chronic) Generalized anxiety disorder (Chronic) Obesity (Chronic) Lymphedema of right lower extremity (Chronic) Chronic low back pain with left-sided sciatica (Chronic) Osteoarthritis (Chronic) Surgical History H/O sigmoidoscopy (08/02/17) History of bilateral tubal ligation History of carpal tunnel surgery of right wrist History of section x 4 History of colonoscopy (~07/24/20) S/P cholecystectomy S/P laparoscopic hysterectomy (10/23/15) For abnormal uterine bleeding; path benign Status post bilateral salpingectomy (10/23/15) Family History Mother Hyperlipidemia COPD (chronic obstructive pulmonary disease) Type 2 diabetes mellitus Hypertension Depression Father Depression Heart disease Hyperlipidemia Type 2 diabetes mellitus Carotid artery stenosis Alcohol abuse Diabetes Stroke Brother Heart disease Hyperlipidemia Depression Myocardial infarction Hypertension Brother Hyperlipidemia Hypertension Fatty liver Son Substance abuse Depression Alcohol abuse Son Alcohol abuse Depression Substance abuse Daughter No problems noted. Daughter Alcohol abuse Anxiety IBS (irritable bowel syndrome) Substance abuse Daughter Celiac disease Paternal Grandfather , at 75 Colon cancer Alcohol abuse Pancreatic cancer Paternal Grandmother , at 82 Stroke Maternal Grandfather , at 83 of ND Alcohol abuse Myocardial infarction Heart disease Hyperlipidemia Maternal Grandmother , at 76 of ovarian cancer Ovarian cancer in her 70s Breast cancer In her 60s Social History Smoking/Tobacco Use Status: Never Second Hand Exposure: Yes Smoking risk assessment performed?: Yes Alcohol Intake: former Drug use: Never Substance use type: does not use Household members: spouse and children Housing: house Communication Needs: None Do you need help understanding health information?: Rarely 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 Pets and animals: Yes Pets and animals: dog(s) Sexually active: Yes Do you think of yourself as: straight/heterosexual Current gender identity: female What is your relationship status?: How often do you talk on the phone with friends or family?: three or more times per week How often do you get together with friends or relatives?: twice per week Do you belong to any clubs or organized social groups?: no Panel score (0-1 are the most socially isolated patients): 2 What type of physical activity do you participate in: walking Duration: 30-45 minutes/day Frequency: 5-6 times per week Judy/Restoration: No preference Do you feel safe at home: Yes Do you feel safe in your relationship?: Yes Female Reproductive History Menstrual Menopause type: surgical Date of menopause: 10/23/15 History History 4 Para Hx # Term Pregnancies Multiple births 1 Hx # Pregnancies Ectopic pregnancies AB induced Hx Number of Living Children 5 AB spontaneous Exam Const General: cooperative Orientation: alert, awake and oriented x3 HENMT Head: normal to inspection Ears: hearing grossly normal bilaterally and TM's normal bilaterally Mouth: oral mucosae normal and moist mucous membranes Throat: posterior oropharynx normal Eyes Visual Leblanc: normal visual leblanc by confrontation Alignment and Position: alignment normal Periorbital: periorbital findings normal Eyelids: eyelids normal Sclera: sclerae normal Pupils: PERRL EOM: EOM intact bilaterally and nystagmus (Slight to the left) Neck Neck: normal visual inspection, full ROM and no meningeal signs Resp Effort & Inspection: normal respiratory effort and able to speak in complete sentences Auscultation: clear to auscultation bilaterally Cardio Rate: regular rate Rhythm: regular rhythm Heart Sounds: S1 normal and S2 normal GI Palpation: soft, not firm, no guarding and nontender Auscultation: normal bowel sounds Neuro General: patient alert, patient awake, patient oriented x3, gait normal, tone normal, moves all extremities, CN's II-XI intact bilaterally and not confused Cranial Nerves: nystagmus (Slight to the left) Cognition: normal cognition Speech: speech normal Motor: muscle tone normal throughout, no pronator drift, no movement abnormalities noted and no fasciculations Sensory Exam: no sensory deficits noted Coordination: Does not sway with eyes open Course Vital Signs Vital signs: Vital Signs Temperature 36.6 C 11/09/21 12:20 Pulse 51 L 11/09/21 12:20 Respiratory Rate 18 11/09/21 12:20 Blood Pressure 135/71 11/09/21 12:20 Pulse Oximetry 99 11/09/21 12:20 Temperature 36.6 C 11/09/21 12:20 Temperature Source Skin 11/09/21 12:20 Pulse 51 L 11/09/21 12:20 Respiratory Rate 18 11/09/21 12:20 Blood Pressure 135/71 11/09/21 12:20 Blood Pressure Position Supine 11/09/21 12:20 Pulse Oximetry 99 11/09/21 12:20 Oxygen Delivery Method Room Air 11/09/21 12:20 Oxygen Flow Rate 0 11/09/21 12:20 Pain Level 0 11/09/21 12:20
[2021-11-09] MEDS: Meclizine 25 MG TAB PO (13:29)
[2021-11-09] MEDS: Normal Saline 1,000 ML 1000 ML IV (13:29)
[2021-11-09] MEDS: Ondansetron 4 MG/2 ML VIAL IVP (13:37)
[2021-11-09 13:50] LABS: Abs Immature Grans 0.01 10^3/uL (0.0-0.06); Absolute Basophil Count 0.02 10^3/uL (0.0-0.2); Absolute Eosinophil Count 0.12 10^3/uL (0.0-0.7); Absolute Lymphocyte Count 1.12 10^3/uL (1.2-3.4); Absolute Monocyte Count 0.39 10^3/uL (0.1-0.8); Absolute Neutrophil Count 3.89 10^3/uL (1.2-6.7); Basophils % 0.4; Eosinophils % 2.2; HCT 43.6 % (36.0-46.0); HGB 14.3 g/dL (11.2-15.7); Immature Grans % 0.2; Lymphocytes % 20.2; MCH 31.1 pg (27.0-33.0); MCHC 32.8 % (32.0-36.0); MCV 95 fL (80-95); MPV 9.9 fL (8.0-11.0); Platelet Count 178 10^3/uL (130-400); RDW 12.4 % (11.7-14.6); RDW-SD 42.5 fL; WBC 5.55 10^3/uL (4.4-10.8)
[2021-11-09 14:06] LABS: ALT 37 U/L (14-59); AST 28 U/L (15-37); Alkaline Phosphatase 104 U/L (46-116); Anion Gap 9.5 mmol/L (3-11); BUN 11 mg/dL (7-18); Bilirubin, Total 0.4 mg/dL (0.2-1.0); CO2 27.5 mmol/L (21.0-32.0); CREATININE 0.8 mg/dL (0.55-1.02); Calcium 8.9 mg/dL (8.5-10.1); Chloride 106 mmol/L (98-107); Glucose 190 mg/dL (74-106); Potassium 3.9 mmol/L (3.5-5.1); Sodium 143 mmol/L (136-145); Total Protein 7.9 g/dL (6.4-8.2); Troponin I < 50 ng/L (<or=60)
[2021-11-09 14:28] LABS: COVID-19 PCR Negative (Negative); Influenza A PCR Negative (Negative); Influenza B PCR Negative (Negative); RSV PCR Negative (Negative)
[2021-11-09 14:29] LABS: Source Nasopharynx
[2021-11-09 14:50] LABS: Bilirubin Negative (Negative); Blood Negative (Negative); Clarity Clear (Clear); Glucose 500 mg/dL (Negative); Ketones Negative (Negative); Leukocyte Esterase Negative (Negative); Nitrite Negative (Negative); Specific Gravity 1.015 (1.005-1.025); Urobilinogen 0.2 EU/dL (Up TO 0.2); pH 7.5 (5-8)
[2021-11-09] MEDS: Ketorolac 15 MG/ML VIAL IVP (14:58)
[2021-11-09 15:43] VITALS: BP 137/72; PULSE 70; RESP 16; O2SAT 98
== END 2021-11-09 15:46 | disposition home or self-care (01) ==
PROVIDERS: Emergency Provider Nurse Practitioner Family; PCP Nurse Practitioner Family
DX: H81.12 Benign paroxysmal vertigo, left ear (principal); E11.9 Type 2 diabetes mellitus without complications
CPT/HCPCS: 36415; 36416; 80053; 82962; 87637; 93005; 96361; 96374; 96375; 99284; 81003; 83735; 84484; 85025; 93010; J1885; J2405

== ENCOUNTER 2022-09-06 10:47 | Outpatient (REF) | payer MEDICAID, SELFPAY ==
[2022-09-06 13:26] LABS: Bilirubin Negative (Negative); Blood Trace-intact (Negative); Clarity Clear (Clear); Glucose >=1000 mg/dL (Negative); Ketones Negative (Negative); Leukocyte Esterase Negative (Negative); Nitrite Negative (Negative); Specific Gravity 1.015 (1.005-1.025); Urobilinogen 0.2 mg/dL (Up to 0.2); pH 6.5 (5-8)
[2022-09-06 13:57] LABS: Bacteria Rare HPF (Negative); C & S Indicated? No; Casts Negative LPF (Negative); Crystals Negative HPF (Negative); Epithelial Cells Negative HPF (Negative); Mucus Negative (Negative); Other Cells Negative (Negative); RBC 0-2 HPF (0-2); WBC Negative HPF (0-5)
== END 2022-09-06 10:48 | disposition home or self-care (01) ==
LOC: LBN 10:47
PROVIDERS: PCP Nurse Practitioner Family; Visit Provider Physician Assistant Medical
DX: N39.0 Urinary tract infection, site not specified (principal); R30.0 Dysuria; E11.9 Type 2 diabetes mellitus without complications
CPT/HCPCS: 81003; 81015

== ENCOUNTER 2022-09-09 16:21 | Outpatient (REF) | payer MEDICAID, SELFPAY ==
[2022-09-09 13:59] LABS: Bilirubin Negative (Negative); Blood Negative (Negative); Clarity Clear (Clear); Glucose >=1000 mg/dL (Negative); Ketones Negative (Negative); Leukocyte Esterase Negative (Negative); Nitrite Negative (Negative); Specific Gravity 1.015 (1.005-1.025); Urobilinogen 0.2 mg/dL (Up to 0.2); pH 5.5 (5-8)
[2022-09-09 21:12] LABS: Abs Immature Grans 0.01 10^3/uL (0.0-0.06); Absolute Basophil Count 0.06 10^3/uL (0.0-0.2); Absolute Lymphocyte Count 1.67 10^3/uL (1.2-3.4); Absolute Monocyte Count 0.42 10^3/uL (0.1-0.8); Absolute Neutrophil Count 2.36 10^3/uL (1.2-6.7); Basophils % 1.3; Eosinophils % 4.2; HCT 41.2 % (36.0-46.0); HGB 14.3 g/dL (11.2-15.7); Immature Grans % 0.2; Lymphocytes % 35.4; MCH 33.9 pg (27.0-33.0); MCHC 34.7 % (32.0-36.0); MCV 98 fL (80-95); MPV 10.6 fL (8.0-11.0); Monocytes % 8.9; Platelet Count 205 10^3/uL (130-400); RBC 4.22 10^6/uL (3.93-5.22); RDW 12.9 % (11.7-14.6); RDW-SD 42.9 fL; WBC 4.72 10^3/uL (4.4-10.8)
[2022-09-09 21:14] LABS: Anion Gap 8.7 mmol/L (3-11); BUN 15 mg/dL (7-18); CO2 27.3 mmol/L (21.0-32.0); CREATININE 0.7 mg/dL (0.55-1.02); Chloride 106 mmol/L (98-107); Estimated GFR 101.44 (mL/min/1.73m2); Glucose 291 mg/dL (74-106); Potassium 4.3 mmol/L (3.5-5.1); Sodium 142 mmol/L (136-145)
== END 2022-09-09 16:22 | disposition home or self-care (01) ==
LOC: LBN 16:21
PROVIDERS: PCP Nurse Practitioner Family; Visit Provider Physician Assistant
DX: R10.9 Unspecified abdominal pain (principal); N76.0 Acute vaginitis; N39.0 Urinary tract infection, site not specified
CPT/HCPCS: 80048; 81003; 85025; 87480; 87510; 87660

== ENCOUNTER 2022-09-28 15:57 | Outpatient (REF) | payer MEDICAID, SELFPAY | END 2022-09-28 15:58 | disposition home or self-care (01) | LOC: LBN 15:57 | PROVIDERS: PCP Nurse Practitioner Family; Visit Provider Nurse Practitioner Family | DX: N89.8 Other specified noninflammatory disorders of vagina (principal); R30.0 Dysuria; R82.998 Other abnormal findings in urine | CPT/HCPCS: 87086; 87480; 87510; 87660 ==

== ENCOUNTER 2022-11-29 17:04 | Emergency (ER) | payer MEDICAID, SELFPAY ==
[2022-11-29 17:10] VITALS: BP 163/83; PULSE 55; RESP 20; TEMP 36.6; O2SAT 99
--- NOTE | 2022-11-29 18:30 | DI.RAD_ITS ---
Exam(s) XR CHEST 2V PA LATERAL EXAM: XR CHEST 2V PA LATERAL CLINICAL HISTORY: Right-sided pleuritic chest pain. TECHNIQUE: 2D digital imaging was performed. COMPARISON: No exams were available for comparison FINDINGS: 2 views: Heart size is normal. The mediastinum is not widened. Lungs are clear. No infiltrates nor pleural effusions. IMPRESSION: No acute pulmonary findings. DATA REPOSITORY: RADIATION DOSE DELIVERED:
--- NOTE | 2022-11-29 18:43 | DI.CT_ITS ---
Exam(s) CT CHEST PE CTA EXAM: CT CHEST PE CTA CLINICAL HISTORY: R pleuritic chest pain. TECHNIQUE: Imaging Protocol: CT angiography of the chest was performed using pulmonary embolus swapnil col. Multi planar reconstructions were performed. CONTRAST MATERIAL: Intravenous: Omnipaque 350 Contrast volume: 100 cc COMPARISON: CT ABD PELVIS WITH CONTRAST from 01/20/2017 FINDINGS: CHEST: PULMONARY ARTERIES: There are no intraluminal filling defects to suggest acute pulmonary emboli. LUNGS: Mild ground-glass appearance of the lung leblanc most probably related to hypoventilation. The re are no air bronchograms. No lung masses.. There are no pleural effusions. MEDIASTINUM: There is no hilar nor mediastinal adenopathy. Visualized thyroid unremarkable. CARDIAC: Heart size is upper normal. There is no pericardial effusion.Caliber of the thoracic aorta is within normal limits. No dissection. Some coronary artery calcification is noted in the LAD. The re is no significant shift of the interventricular septum. PARTIALLY VISUALIZED UPPERMOST ABDOMEN: No obvious findings OSSEOUS: No significant osseous lesions.. IMPRESSION: 1. No evidence of acute pulmonary emboli. No evidence of pulmonary infarction.No pleural effusions. 2. Increased ground-glass type markings in both lung leblanc most probably secondary to hypoventilatio n changes; less likely Covid or other pneumonitis. No significant intrathoracic adenopathy. 3. No evidence of aortic dissection nor pericardial effusion. Coronary artery calcification in the L AD noted. RADIATION DOSE DELIVERED: 656.75mGy.cm Total DLP DATA REPOSITORY: All CT scans at this facility are submitted to the National Radiology Data Registry (NRDR) Dose Index Registry (DIR) with the [employer] (A[employer]). RADIATION OPTIMIZATION: All CT scans at this facility use at least one of these dose optimization te chniques: automated exposure control; mA and/or kV adjustment per patient size (includes targeted exa ms where dose is matched to clinical indication); or iterative reconstruction.
[2022-11-29 18:55] LABS: Abs Immature Grans 0.01 10^3/uL (0.0-0.06); Absolute Basophil Count 0.05 10^3/uL (0.0-0.2); Absolute Eosinophil Count 0.26 10^3/uL (0.0-0.7); Absolute Lymphocyte Count 2.35 10^3/uL (1.2-3.4); Absolute Monocyte Count 0.59 10^3/uL (0.1-0.8); Absolute Neutrophil Count 2.14 10^3/uL (1.2-6.7); Basophils % 0.9; Eosinophils % 4.8; HCT 41.6 % (36.0-46.0); HGB 13.7 g/dL (11.2-15.7); Immature Grans % 0.2; Lymphocytes % 43.5; MCH 30.9 pg (27.0-33.0); MCHC 32.9 % (32.0-36.0); MCV 94 fL (80-95); MPV 9.5 fL (8.0-11.0); Monocytes % 10.9; Neutrophils % 39.7; Platelet Count 164 10^3/uL (130-400); RBC 4.43 10^6/uL (3.93-5.22); RDW 12.8 % (11.7-14.6); RDW-SD 44.5 fL
[2022-11-29 19:06] LABS: Lipase 59 U/L (16-77)
[2022-11-29 19:11] LABS: ALT 20 U/L (14-59); AST 14 U/L (15-37); Albumin 3.6 g/dL (3.4-5.0); Alkaline Phosphatase 85 U/L (46-116); BUN 18 mg/dL (7-18); Bilirubin, Total 0.4 mg/dL (0.2-1.0); CREATININE 0.7 mg/dL (0.55-1.02); Calcium 8.6 mg/dL (8.5-10.1); Chloride 105 mmol/L (98-107); Estimated GFR 101.44 (mL/min/1.73m2); Glucose 132 mg/dL (74-106); Potassium 3.7 mmol/L (3.5-5.1); Sodium 137 mmol/L (136-145); Total Protein 7.2 g/dL (6.4-8.2)
--- NOTE | 2022-11-29 19:30 | RT.EKG_ITS ---
APPROVED REPORT Exam: Resting ECG Reason for Exam: SOB Patient Location: E HR:51 bpm ECG Measurements Heart Rate 51 AXIS TX 181 P 53 QRSd 98 QRS 25 QT 493 T 29 QTc 454 Conclusion Sinus bradycardia...rate< 60
--- NOTE | 2022-11-29 19:39 | ED.GENADUL_ITS ---
Discharge Plan Discharge Details Chief Complaint: RespSymp Primary Care Provider: Ale Walls ED Provider: Telly Barrow Home Meds and New Rx's Prescriptions: No Action fluticasone propionate 50 mcg/actuation spray,suspension 1 spray NS BID PRN (Reason: nasal congestion) Qty: 16 1RF rosuvastatin 10 mg tablet 10 mg PO DAILY Qty: 90 4RF (DME) OneTouch Ultra Test Strip See Rx Instructions .MEDSUPPLY Qty: 200 3RF Rx Instructions: Check blood sugar twice a day (DME) blood-glucose meter [OneTouch Ultra2 Meter] Kit See Rx Instructions .MEDSUPPLY Qty: 1 2RF Rx Instructions: Check blood sugar twice a day (DME) lancets [OneTouch UltraSoft Lancets] Misc See Rx Instructions .MEDSUPPLY Qty: 200 4RF Rx Instructions: Check blood sugar twice a day estradiol [Estrace] 0.01 % (0.1 mg/gram) cream 1 g vaginal DAILY Qty: 42.5 0RF Rx Instructions: for 14 days, then decrease to twice weekly metformin 500 mg tablet 1,000 mg PO BID Qty: 360 3RF Rx Instructions: Take 2 tablets in the morning and 2 tablets in the evening citalopram [Celexa] 40 mg tablet 40 mg PO DAILY Qty: 90 3RF Medical Decision Making Unclear etiology of this patient's acute pain. Pneumonia certainly possible but does PE. Also pleurisy and an intrathoracic mass intrathoracic hematoma. Differential is broad. Vital signs are not unstable. She has no hypoxia. She is not febrile. She is not tachycardic. No significant findings on auscultation of the lungs. Plan now is to administer pain medication and obtain advanced imaging first plain film x-ray and then CT angio of the chest to rule out pulmonary embolism or other intraparenchymal cause of patient's pain. HPI General Date/Time Provider Initiated Documentation: 11/29/22 18:32 . HPI Narrative: Patient with no real significant medical history now presents with sudden onset of right posterior back pain that is pleuritic in character this started about 4 days ago. She denies fevers she denies a productive cough she denies previous episodes of this pleuritic chest pain. No hemoptysis. No known pulmonary disease. No significant smoking history. No unilateral leg edema. No trauma. Pain has been constant and steadily worsening. Related Data Home Medications Medication Instructions Recorded Confirmed fluticasone propionate 50 1 spray NS BID PRN nasal 06/04/21 09/28/22 mcg/actuation nasal congestion #16 grams spray,suspension rosuvastatin 10 mg tablet 10 mg PO DAILY #90 tabs 04/29/22 09/28/22 blood sugar diagnostic (OneTouch #200 ea 09/23/22 09/28/22 Ultra Test strips) blood-glucose meter (OneTouch #1 ea 09/23/22 09/28/22 Ultra2 Meter kit) lancets (OneTouch UltraSoft #200 ea 09/23/22 09/28/22 Lancets) estradiol 0.01% (0.1 mg/gram) 1 g vaginal DAILY #42.5 grams 10/03/22 vaginal cream (Estrace) citalopram 40 mg tablet (Celexa) 40 mg PO DAILY #90 tabs 11/23/22 metformin 500 mg tablet 1,000 mg PO BID #360 tabs 11/23/22 Previous Rx's Medication Instructions Recorded fluticasone propionate 50 1 spray NS BID PRN nasal 06/04/21 mcg/actuation nasal congestion #16 grams spray,suspension rosuvastatin 10 mg tablet 10 mg PO DAILY #90 tabs 04/29/22 blood sugar diagnostic (OneTouch #200 ea 09/23/22 Ultra Test strips) blood-glucose meter (OneTouch #1 ea 09/23/22 Ultra2 Meter kit) lancets (OneTouch UltraSoft #200 ea 09/23/22 Lancets) estradiol 0.01% (0.1 mg/gram) 1 g vaginal DAILY #42.5 grams 10/03/22 vaginal cream (Estrace) citalopram 40 mg tablet (Celexa) 40 mg PO DAILY #90 tabs 11/23/22 metformin 500 mg tablet 1,000 mg PO BID #360 tabs 11/23/22 Allergies Allergy/AdvReac Type Severity Reaction Status Date / Time No Known Allergies Allergy Verified 10/31/22 09:22 General Stated Complaint: RespSymp WILNER: 3 Review of Systems Narrative: CONST: Negative for fever, body aches and chills. HENT: Negative for neck pain/stiffness, headache, congestion, sore throat, swelling. EYES: Negative for discharge/pain or vision changes. RESP: Negative for cough/hemoptysis and shortness of breath. CV: Negative chest pain, difficulty breathing, palpitations. ABD: Negative pain, nausea, vomiting. : Negative increase frequency, dysuria, blood in urine or stool. MUSC: Negative for muscle aches, edema. SKIN: Negative rash, lesions/sores. NEURO: Negative headache, dizziness, weakness. PFSH All Active Problems Obesity (Chronic) Hyperlipidemia (Chronic) Generalized anxiety disorder (Chronic) Chronic low back pain with left-sided sciatica (Chronic) Lymphedema of right lower extremity (Chronic) Major depressive disorder (Chronic) Osteoarthritis (Chronic) Type 2 diabetes mellitus with diabetic neuropathy (Chronic) Ganglion cyst of tendon sheath of right hand (Acute) Dysuria (Acute) Vaginal itching (Acute) Surgical History H/O sigmoidoscopy (08/02/17) History of bilateral tubal ligation History of carpal tunnel surgery of right wrist History of section x 4 History of colonoscopy (~07/24/20) S/P cholecystectomy S/P laparoscopic hysterectomy (10/23/15) For abnormal uterine bleeding; path benign Status post bilateral salpingectomy (10/23/15) Family History Mother Hyperlipidemia COPD (chronic obstructive pulmonary disease) Type 2 diabetes mellitus Hypertension Depression Father Depression Heart disease Hyperlipidemia Type 2 diabetes mellitus Carotid artery stenosis Alcohol abuse Diabetes Stroke Brother Heart disease Hyperlipidemia Depression Myocardial infarction Hypertension Brother Hyperlipidemia Hypertension Fatty liver Son Substance abuse Depression Alcohol abuse Son Alcohol abuse Depression Substance abuse Daughter No problems noted. Daughter Alcohol abuse Anxiety IBS (irritable bowel syndrome) Substance abuse Daughter Celiac disease Paternal Grandfather , at 75 Colon cancer Alcohol abuse Pancreatic cancer Paternal Grandmother , at 82 Stroke Maternal Grandfather , at 83 of [place] Alcohol abuse Myocardial infarction Heart disease Hyperlipidemia Maternal Grandmother , at 76 of ovarian cancer Ovarian cancer in her 70s Breast cancer In her 60s Social History Smoking/Tobacco Use Status: Never Second Hand Exposure: Yes Smoking risk assessment performed?: Yes Alcohol Intake: former Drug use: Never Substance use type: does not use Household members: spouse and children Housing: house Communication Needs: None Do you need help understanding health information?: Rarely current occupation: Teacher/teacher early childhood development provider Pets and animals: Yes Pets and animals: dog(s) Sexually active: Yes Do you think of yourself as: straight/heterosexual Current gender identity: female What is your relationship status?: How often do you talk on the phone with friends or family?: three or more times per week How often do you get together with friends or relatives?: three or more times per week How often do you attend yarsani or denominational services?: decline to answer Do you belong to any clubs or organized social groups?: no Panel score (0-1 are the most socially isolated patients): 2 What type of physical activity do you participate in: walking Duration: 30-45 minutes/day Frequency: 5-6 times per week Judy/Denominational: No preference Do you feel safe at home: Yes Do you feel safe in your relationship?: Yes Female Reproductive History Menstrual Menopause type: surgical Date of menopause: 10/23/15 History History 4 Para Hx # Term Pregnancies Multiple births 1 Hx # Pregnancies Ectopic pregnancies AB induced Hx Number of Living Children 5 AB spontaneous Exam Narrative Exam Narrative: GENERAL APPEARANCE lying on her side uncomfortable in appearance activity normal for age, well developed/ well nourished, no cyanosis, pallor, or diaphoresis. EYES lids/conjunctiva normal. EARS/NOSE/THROAT Mucous membranes moist, nares normal, lips/teeth normal uvula midline without oral pharyngeal erythema, exudate or swelling No lymphangitis/lymphedema. HEAD/NECK normocephalic atraumatic, no facial trauma, neck is supple. RESPIRATORY patient is splinting respirations are shallow not rapid, no tripod position, no accessory muscle use. Lungs clear to auscultation without rhonchi, wheezes, rales CARDIAC Regular rate and rhythm, no edema. ABDOMINAL Soft, ND/NT. No evidence of fluid wave. No pulsatile masses on exam, rebound tenderness, Travis sign or pain over Mcburney's point. MUSCLES/EXTREMITIES No abnormal range of motion, no swelling. SKIN Warm, pink and dry. No rashes, dermatoses, petechiae or lesions. NEUROLOGICAL Speech is clear and appropriate. Normal level of consciousness. Gait and coordination are normal. 5/5 strength in all extremities. PSYCH Normal mood and affect. Judgement/competence is appropriate Course Vital Signs Vital signs: Vital Signs Temperature 36.6 C 11/29/22 17:10 Pulse 55 L 11/29/22 17:10 Respiratory Rate 20 11/29/22 17:10 Blood Pressure 163/83 H 11/29/22 17:10 Pulse Oximetry 99 11/29/22 17:10 Temperature 36.6 C 11/29/22 17:10 Temperature Source Tympanic 11/29/22 17:10 Pulse 55 L 11/29/22 17:10 Respiratory Rate 20 11/29/22 17:10 Respiratory Effort Normal, Short of Breath 11/29/22 17:15 Respiratory Depth Normal 11/29/22 17:15 Blood Pressure 163/83 H 11/29/22 17:10 Pulse Oximetry 99 11/29/22 17:10 Oxygen Delivery Method Room Air 11/29/22 17:10 Oxygen Flow Rate 0 11/29/22 17:10 Pain Level 11/29/22 17:10 Lab/Test Results Lab/Test Results: Laboratory Tests Range/Units 11/29/22 11/29/22 11/29/22 18:49 18:49 18:49 WBC (4.4-10.8) 10^3/uL 5.40 RBC (3.93-5.22) 10^6/uL 4.43 Hgb (11.2-15.7) g/dL 13.7 Hct (36.0-46.0) % 41.6 MCV (80-95) fL 94 MCH (27.0-33.0) pg 30.9 MCHC (32.0-36.0) % 32.9 RDW (11.7-14.6) % 12.8 Plt Count (130-400) 10^3/uL 164 MPV (8.0-11.0) fL 9.5 Immature Gran % 0.2 Neutrophils % 39.7 Lymphocytes % 43.5 Monocytes % 10.9 Eosinophils % 4.8 Basophils % 0.9 Nucleated RBC % (0.0-0.3) % 0.0 Absolute Neutrophils (1.2-6.7) 10^3/uL 2.14 Absolute Lymphocytes (1.2-3.4) 10^3/uL 2.35 Absolute Monocytes (0.1-0.8) 10^3/uL 0.59 Absolute Eosinophils (0.0-0.7) 10^3/uL 0.26 Absolute Basophils (0.0-0.2) 10^3/uL 0.05 Sodium (136-145) mmol/L 137 Potassium (3.5-5.1) mmol/L 3.7 Chloride (98-107) mmol/L 105 Carbon Dioxide (21.0-32.0) mmol/L 26.0 Anion Gap (3-11) mmol/L 6.0 BUN (7-18) mg/dL 18 Creatinine (0.55-1.02) mg/dL 0.7 Est GFR (CKD-EPI 2020) (mL/min/1.73m2) 101.44 Glucose (74-106) mg/dL 132 H Calcium (8.5-10.1) mg/dL 8.6 Total Bilirubin (0.2-1.0) mg/dL 0.4 AST (15-37) U/L 14 L ALT (14-59) U/L 20 Alkaline Phosphatase (46-116) U/L 85 Total Protein (6.4-8.2) g/dL 7.2 Albumin (3.4-5.0) g/dL 3.6 Lipase (16-77) U/L 59 Sign Out Sign Out Data: Sign Out Comment: Pending CTA chest results Last updated by Telly Barrow MD at 11/29/22 20:23
[2022-11-29] MEDS: Normal Saline Flush 10 ML SYR IVP (20:39)
[2022-11-29] MEDS: Omnipaque 350 MG/ML 100 ML BTL IV (20:40)
[2022-11-29] MEDS: Normal Saline - Diluent 50 ML VIAL IJ (20:41)
--- NOTE | 2022-11-29 20:59 | DI.VRAD_ITS ---
PROCEDURE INFORMATION: Exam: XR Chest Exam date and time: 11/29/2022 8:04 PM Age: 57 years old Clinical indication: Other: Right-sided pleuritic chest pain TECHNIQUE: Imaging protocol: Radiologic exam of the chest. Views: 2 views. COMPARISON: CT HEAD AND CSPINE W/O CONTRAST 05/25/2017 3:35 PM FINDINGS: Lungs: Normal pulmonary expansion. Pulmonary vasculature grossly normal. No gross pulmonary infiltrates or edema pattern. Pleural spaces: No pleural effusion. No pneumothorax. Heart/Mediastinum: Heart size normal. No tracheal/mediastinal shift. Vasculature: Mild aortic ectasia/tortuosity. Bones/joints: No acute osseous abnormalities are identified. IMPRESSION: No acute thoracic process. Dictated and Authenticated by: Camilo Escobedo MD. Ordering:EMELIA Varner MD
--- NOTE | 2022-11-29 21:14 | DI.VRAD_ITS ---
PROCEDURE INFORMATION: Exam: CTA Chest With Contrast Exam date and time: 11/29/2022 8:38 PM Age: 57 years old Clinical indication: Other: R pleuritic chest pain; Additional info: Right-sided pleuritic chest pain TECHNIQUE: Imaging protocol: Computed tomographic angiography of the chest with contrast. Exam focused on the arteries. 3D rendering (Not supervised by radiologist): MIP and/or 3D reconstructed images were created by the technologist. Radiation optimization: All CT scans at this facility use at least one of these dose optimization techniques: automated exposure control; mA and/or kV adjustment per patient size (includes targeted exams where dose is matched to clinical indication); or iterative reconstruction. Contrast material: OMNIPAQUE 350; Contrast volume: 100 ml; Contrast route: INTRAVENOUS (IV); COMPARISON: CR XR CHEST 2V PA LATERAL 11/29/2022 8:04 PM FINDINGS: Pulmonary arteries: The pulmonary arteries enhance appropriately with no evidence of pulmonary embolism. Aorta: Mild aortic ectasia/tortuosity and calcific atherosclerosis. No aortic aneurysm or dissection. No mediastinal hematoma. Thyroid: The visualized thyroid gland demonstrates no gross abnormality. Lungs: Mild-moderate bilateral bronchial wall thickening consistent with bronchitis or bronchial edema. No bronchiectasis. No bronchial occlusions. Patchy mild bilateral alveolar attenuation which is likely subsegmental atelectasis related to bronchitis/bronchiolitis or hypoventilatory changes. Patchy mild edema or pneumonitis considered less likely. No pulmonary mass lesions are identified. Pleural spaces: No pleural effusion. No pneumothorax. Heart: Heart size normal. Mild-moderate coronary artery calcification. No pericardial effusion. Mediastinal space: Esophagus is largely contracted without gross abnormality. Lymph nodes: No supraclavicular or axillary adenopathy. No mediastinal or hilar adenopathy. Intraperitoneal space: Visualized upper abdominal structures are unremarkable. Bones/joints: No acute osseous abnormalities are identified. Soft tissues: The soft tissues of the chest wall demonstrate no acute abnormality. IMPRESSION: 1. No evidence of pulmonary embolism or aortic dissection. 2. Mild-moderate bilateral bronchial wall thickening suggesting changes of bronchitis or bronchial edema. 3. Patchy mild bilateral ground-glass alveolar attenuation likely represents subsegmental atelectasis secondary to hypoventilatory changes or bronchiolitis. Patchy mild edema or pneumonitis considered less likely. 4. Mild-moderate coronary artery calcification in the LAD distribution. Dictated and Authenticated by: Camilo Escobedo MD. Ordering:EMELIA Varner MD
--- NOTE | 2022-11-29 21:20 | W.EDPROG ---
Date of service: 11/29/22 Time of Service: 01:44 Medical Decision Making This 57-year-old female patient presents with a chief complaint of posterior right pleuritic thoracic pain that began 4 days ago. The patient states that several weeks ago she had a GI bug but has not had any URI symptoms. She denies fever, congestion, or cough. There is no chest pain or abdominal pain. She has no flank pain or urinary symptoms. She was signed out to me by the day doctor with a chest CT pending. Chest CT is negative for pulmonary embolism and essentially shows no acute thoracic process except atelectasis mild to moderate bronchial wall thickening. The patient was advised to follow-up with her primary care doc on this. The patient's labs were reviewed and are normal except for mildly elevated glucose at 132. Her EKG showed sinus bradycardia at 50 with no change versus 11/09/2021. I suspect that the patient likely has pleurisy we talked about using NSAIDs for this. She will take ibuprofen 600 mg every 6 hours as needed for pain. She will get a recheck with her primary care doc if the pain persists past 48 to 72 hours. She will return to ED for severe difficulty breathing, fever of 100.4 or above, any other concerns. Medical Records Medical records reviewed: Yes I reviewed the patient's medical records. Imaging Data Radiologic Study: Imaging: CT Scan Radiologist's impression: PROCEDURE INFORMATION: Exam: CTA Chest With Contrast Exam date and time: 11/29/2022 8:38 PM Age: 57 years old Clinical indication: Other: R pleuritic chest pain; Additional info: Right-sided pleuritic chest pain TECHNIQUE: Imaging protocol: Computed tomographic angiography of the chest with contrast. Exam focused on the arteries. 3D rendering (Not supervised by radiologist): MIP and/or 3D reconstructed images were created by the technologist. Radiation optimization: All CT scans at this facility use at least one of these dose optimization techniques: automated exposure control; mA and/or kV adjustment per patient size (includes targeted exams where dose is matched to clinical indication); or iterative reconstruction. Contrast material: OMNIPAQUE 350; Contrast volume: 100 ml; Contrast route: INTRAVENOUS (IV);? COMPARISON: CR XR CHEST 2V PA LATERAL 11/29/2022 8:04 PM FINDINGS: Pulmonary arteries: The pulmonary arteries enhance appropriately with no evidence of pulmonary embolism. Aorta: Mild aortic ectasia/tortuosity and calcific atherosclerosis. No aortic aneurysm or dissection. No mediastinal hematoma. Thyroid: The visualized thyroid gland demonstrates no gross abnormality. Lungs: Mild-moderate bilateral bronchial wall thickening consistent with bronchitis or bronchial edema. No bronchiectasis. No bronchial occlusions. Patchy mild bilateral alveolar attenuation which is likely subsegmental atelectasis related to bronchitis/bronchiolitis or hypoventilatory changes. Patchy mild edema or pneumonitis considered less likely. No pulmonary mass lesions are identified. Pleural spaces: No pleural effusion. No pneumothorax. Heart: Heart size normal. Mild-moderate coronary artery calcification. No pericardial effusion. Mediastinal space: Esophagus is largely contracted without gross abnormality. Lymph nodes: No supraclavicular or axillary adenopathy. No mediastinal or hilar adenopathy. Intraperitoneal space: Visualized upper abdominal structures are unremarkable. Bones/joints: No acute osseous abnormalities are identified. Soft tissues: The soft tissues of the chest wall demonstrate no acute abnormality. IMPRESSION: 1. ? No evidence of pulmonary embolism or aortic dissection. 2. ? Mild-moderate bilateral bronchial wall thickening suggesting changes of bronchitis or bronchial edema. 3. ? Patchy mild bilateral ground-glass alveolar attenuation likely represents subsegmental atelectasis secondary to hypoventilatory changes or bronchiolitis. Patchy mild edema or pneumonitis considered less likely. 4. ? Mild-moderate coronary artery calcification in the LAD distribution. Dictated and Authenticated by: Camilo Escobedo MD. Ordering:EMELIA Varner MD PROCEDURE INFORMATION: Exam: XR Chest Exam date and time: 11/29/2022 8:04 PM Age: 57 years old Clinical indication: Other: Right-sided pleuritic chest pain TECHNIQUE: Imaging protocol: Radiologic exam of the chest. Views: 2 views. COMPARISON: CT HEAD AND CSPINE W/O CONTRAST 05/25/2017 3:35 PM FINDINGS: Lungs: Normal pulmonary expansion. Pulmonary vasculature grossly normal. No gross pulmonary infiltrates or edema pattern. Pleural spaces: No pleural effusion. No pneumothorax. Heart/Mediastinum: Heart size normal. No tracheal/mediastinal shift. Vasculature: Mild aortic ectasia/tortuosity. Bones/joints: No acute osseous abnormalities are identified. IMPRESSION: No acute thoracic process. Dictated and Authenticated by: Camilo Escobedo MD. Ordering:EMELIA Varner MD Lab Data Lab results reviewed: Yes I reviewed the patient's lab results. ECG Data Attestation: I personally reviewed and interpreted this ECG (s) as follows: (see note) Sign Out Sign Out Data: Sign Out Comment: Pending CTA chest results Last updated by Telly Barrow MD at 11/29/22 20:23 Discharge Plan Disposition Patient Disposition: Home Condition: Stable Discharge Details Clinical Impression: Pleurisy Primary Care Provider: Ale Walls ED Provider: Ariana Becerra Home Meds and New Rx's Prescriptions: Continued fluticasone propionate 50 mcg/actuation spray,suspension 1 spray NS BID PRN (Reason: nasal congestion) Qty: 16 1RF rosuvastatin 10 mg tablet 10 mg PO DAILY Qty: 90 4RF (DME) OneTouch Ultra Test Strip See Rx Instructions .MEDSUPPLY Qty: 200 3RF Rx Instructions: Check blood sugar twice a day (DME) blood-glucose meter [OneTouch Ultra2 Meter] Kit See Rx Instructions .MEDSUPPLY Qty: 1 2RF Rx Instructions: Check blood sugar twice a day (DME) lancets [OneTouch UltraSoft Lancets] Misc See Rx Instructions .MEDSUPPLY Qty: 200 4RF Rx Instructions: Check blood sugar twice a day estradiol [Estrace] 0.01 % (0.1 mg/gram) cream 1 g vaginal DAILY Qty: 42.5 0RF Rx Instructions: for 14 days, then decrease to twice weekly metformin 500 mg tablet 1,000 mg PO BID Qty: 360 3RF Rx Instructions: Take 2 tablets in the morning and 2 tablets in the evening citalopram [Celexa] 40 mg tablet 40 mg PO DAILY Qty: 90 3RF Discharge Instructions Instructions: Pleurisy (ED) Additional Instructions: Ibuprofen 600 mg every 6 hours as needed for pain. Try heating pad as well. Return to ED for severe difficulty breathing, fever of 100.4 or above, any other concerns. Recheck with your PCP if no better and 48 to 72 hours Discharge Data Discharge Date/Time-TO BE ENTERED AT DEPARTURE: 11/29/22 22:45
[2022-11-29] MEDS: ACETAMINOPHEN 1,000 MG/100 ML BTL 400 MG (21:29)
[2022-11-29] MEDS: Ketorolac 15 MG/ML VIAL IVP (21:58)
[2022-11-30 18:53] LABS: Lab Add On Test DONE
[2022-11-30 19:23] LABS: Hemoglobin A1C 7.3 % (<5.7)
== END 2022-11-29 22:45 | disposition home or self-care (01) ==
PROVIDERS: Emergency Medicine; Emergency Provider Emergency Medicine; PCP Nurse Practitioner Family
DX: R06.02 Shortness of breath (principal); R09.1 Pleurisy; E11.9 Type 2 diabetes mellitus without complications
CPT/HCPCS: 71275; 80053; 83690; 93005; 96374; 99285; 71046; 83036; 85025; 93010; 99284; J0131; J1885; J3490

== ENCOUNTER 2022-11-30 21:04 | Outpatient (REF) | payer MEDICAID, SELFPAY ==
[2022-11-30 22:08] LABS: Bilirubin Negative (Negative); Blood Negative (Negative); Clarity Clear (Clear); Glucose >=1000 mg/dL (Negative); Ketones Trace mg/dL (Negative); Leukocyte Esterase Negative (Negative); Nitrite Negative (Negative); Urobilinogen 0.2 mg/dL (Up to 0.2)
== END 2022-11-30 21:05 | disposition home or self-care (01) ==
LOC: LBN 21:04
PROVIDERS: PCP Nurse Practitioner Family; Visit Provider Nurse Practitioner Family
DX: M54.6 Pain in thoracic spine (principal); N89.8 Other specified noninflammatory disorders of vagina
CPT/HCPCS: 81003; 87480; 87510; 87660

== ENCOUNTER 2023-08-23 10:26 | Day surgery (SDC) | payer MEDICAID, SELFPAY ==
--- NOTE | 2023-08-23 07:29 | PDOC.DSDIS_ITS ---
Date of service: 08/23/23 Time of Service: 07:29 Discharge Plan Disposition Patient Disposition: Home Condition: Good Discharge Details Reason For Visit: R wrist cyst removal Attending Provider: David Rodriguez Primary Care Provider: Ale Walls Home Meds and New Rx's Prescriptions: New hydrocodone-acetaminophen 5-325 mg tablet 1 tab PO Q6H PRN (Reason: pain) Qty: 6 0RF acetaminophen 500 mg tablet 1,000 mg PO TID Qty: 90 0RF ibuprofen 600 mg tablet 600 mg PO TID PRN (Reason: pain) Qty: 90 0RF Continued rosuvastatin 10 mg tablet 10 mg PO DAILY Qty: 90 3RF meclizine 25 mg tablet 25 mg PO TID PRN (Reason: dizziness) Qty: 60 0RF cyclobenzaprine 5 mg tablet 5 - 10 mg PO TID PRN (Reason: muscle spasm) Qty: 60 0RF fluticasone propionate 50 mcg/actuation spray,suspension 1 spray NS BID PRN (Reason: nasal congestion) Qty: 16 1RF semaglutide 2 mg/dose (8 mg/3 mL) pen injector 2 mg subcut QWEEK Qty: 9 3RF Hold Instructions: On hold for surgery since 08/06 glipizide 5 mg tablet extended release 24hr 5 mg PO DAILY Qty: 90 3RF (DME) OneTouch Ultra Test Strip See Rx Instructions .MEDSUPPLY Qty: 200 3RF Rx Instructions: Check blood sugar twice a day (DME) blood-glucose meter [OneTouch Ultra2 Meter] Kit See Rx Instructions .MEDSUPPLY Qty: 1 2RF Rx Instructions: Check blood sugar twice a day (DME) lancets [OneTouch UltraSoft Lancets] Misc See Rx Instructions .MEDSUPPLY Qty: 200 4RF Rx Instructions: Check blood sugar twice a day estradiol [Estrace] 0.01 % (0.1 mg/gram) cream 1 g vaginal DAILY Qty: 42.5 0RF Rx Instructions: for 14 days, then decrease to twice weekly metformin 500 mg tablet 1,000 mg PO BID Qty: 360 3RF Rx Instructions: Take 2 tablets in the morning and 2 tablets in the evening citalopram [Celexa] 40 mg tablet 40 mg PO DAILY Qty: 90 3RF Discontinued meloxicam 15 mg tablet 15 mg PO DAILY PRN (Reason: pain) Qty: 90 0RF Discharge Instructions Additional Instructions: Wrist Discharge Instructions Activity: You should keep the hand elevated as much as possible for the first few days. You may use your fingers as tolerated but avoid trying to do too much too soon. You may perform light activities but avoid lifting or doing too much too soon. You may use a split if needed. Dressing/Cast: You may remove the dressing after [address] a large Band-Aid over the incision if desired but it's not needed. The wound is closed with skin glue and burried sutures.. Medications: - You should take Tylenol and Ibuprofen for baseline pain control. - You have Hydrocodone for breakthrough pain. - You may apply ice over the wrist. Follow-up: 7-10 days Stand Alone Forms: Yoan Buckley ([facility]) Referrals: David Rodriguez MD [ [facility] STAFF PHYSICIAN] - Activity:: Activity as Tolerated Remove Dressings/Wound Care:: 72 hours Shower/Bathe:: 72 hours Diet:: As Tolerated Discharge Orders Discharge Orders: Discharge Order (Routine); Ordered 08/23/23 Ordered By: Earnest Naylor
[2023-08-23 10:30] VITALS: BP 121/79; PULSE 70; RESP 16; TEMP 36.6; O2SAT 97
[2023-08-23] MEDS: Lidocaine 1% Multi-Dose W/EPI 1/100,000 50 ML VIAL (11:28)
[2023-08-23] MEDS: Sodium Bicarbonate 50 MEQ/50 ML VIAL (11:28)
--- NOTE | 2023-08-23 11:50 | W.PM.OP ---
Date of service: 08/23/23 Time of Service: 11:30 Operative Note Operative Note DATE OF PROCEDURE: 08/23/23 PRE-OP DIAGNOSIS: Dorsal Wrist Cyst of Tendon Sheath - Right Hand POST-OP DIAGNOSIS: other (Metacarpal Boss with Extensor Tenosynovitis - Right Hand) PROCEDURE: Extensor tenosynovectomy (limited) with dorsal metacarpal boss ostectomy - Right hand SURGEON: David Rodriguez ANESTHESIA TYPE: Local By Surgeon Refer to Anesthesia Record ESTIMATED BLOOD LOSS: 5 PATHOLOGY: none sent TOURNIQUET TIME: 0 COMPLICATIONS: None Patient was transported to: same day Patient's condition: stable Indications: Thea is a 58-year-old who has had a painful mass about the dorsum of the right hand. This is primarily over the middle finger extensor tendon. It seem to be associated with the tendon itself was thought to be a ganglion cyst of tendon sheath. There is also smaller mass which she identified over the ring finger area which was newer. This cause pain at all times but also with direct pressure. Given this, I offered cyst excision. I reviewed the risk of the procedure to include bleeding, infection, pain, stiffness, recurrence, damage to nerves and vessels. Despite these risk, she elected to proceed. Findings: There is notable tenosynovitis about the extensor tendons and a boss about the metacarpal base which was articulating with the tendon. No clear cystic change was identified. Procedure Description: Thea was greeted in the preoperative holding area. Her identity was confirmed the right side was identified and marked. The consent was reviewed the patient and signed. She was taken to the operating room placed in the supine position with the right hand on a hand table. The right hand was then prepped ChloraPrep and draped in a standard fashion. A timeout was performed for safe surgery. The 2 masses were identified on the skin. A longitudinal incision was drawn on the skin in between these 2 areas over the dorsum of the hand. This was then injected with 1% lidocaine with epinephrine and buffered with sodium bicarbonate. She tolerated this well and once anesthesia had set up I then proceeded with a longitudinal incision, approximate 3 cm in length. This was taken down through the skin. Blunt dissection was carried on next. The extensor tendons were identified. There is some notable tenosynovitis seen about the tendons. This is both dorsal and volar to the tendons himself. With finger motion the tendons were inspected they did not show any signs of cystic change. The prominence which was felt through the skin and previously marked was palpated and was thought to be associated with a lip or boss of the base of the metacarpal bone, likely third metacarpal. There is extensive amount of inflammatory changes around this and adjacent to the flexor tendons as well as extensor carpi radialis longus and extensor carpi radialis brevis. However, there is no sign of tendon tearing. Therefore, proceeded with a tenosynovectomy, removing some of this inflammatory tissue from around the extensor tendons over the dorsum of the hand. The prominence of the base of the metacarpal was identified and smoothed down with a rongeur and a rasp. The more lateral prominence was inspected but did not show the same findings of a prominent lip on the metacarpal base. Inflammatory tissue was debrided down. The wound was then thoroughly irrigated. The tissues were closed with a 3-0 Vicryl followed by 4-0 Monocryl in a subcuticular running pattern. This was reinforced with skin glue. The wound was then dressed with 4 x 4's, Kerlix and Lino wrap. At the end the case all counts are correct. I did discuss with Thea during the case that this was an unexpected deviation from the expectation of this being a cyst. I am hopeful that the debridement of the tendons will improve her pain. However, if she has continued symptoms we will have to reinvestigate the prominence of her metacarpal bases as a likely contributing factor of her pain and prominence.
[2023-08-23 12:45] VITALS: BP 110/72; PULSE 67; RESP 18; TEMP 36.2; O2SAT 99
== END 2023-08-23 12:00 | disposition home or self-care (01) ==
LOC: SUR 10:26
PROVIDERS: PCP Nurse Practitioner Family; Visit Provider Student in an Organized Health Care Education/Training Program
PROC: (CPT 26200; principal; 2023-08-23 15:00)
DX: M65.831 Other synovitis and tenosynovitis, right forearm (principal); M89.8X4 Other specified disorders of bone, hand
CPT/HCPCS: 26200; 25110; J2004

== ENCOUNTER 2023-10-02 16:01 | Outpatient (CLI) | payer MEDICAID, SELFPAY ==
--- NOTE | 2023-10-02 10:15 | DI.RAD_ITS ---
Exam(s) XR HAND RT COMPLETE EXAM: XR HAND RT COMPLETE CLINICAL HISTORY: pain. TECHNIQUE: 2D digital imaging was performed of the right hand. Three images were obtained. AP, late ral and oblique views were obtained. COMPARISON: No exams were available for comparison FINDINGS: BONES: No acute fracture is present. No bony destructive lesion is seen. There is an ulnar minus vari ant. JOINTS: No dislocation present. There is narrowing of the lateral aspect of the radiocarpal joint. T here are mild degenerative changes seen at the DIP joints of the fingers. The joint spaces are other cramer well maintained. SOFT TISSUE: Normal. IMPRESSION: 1. Ulnar minus variant. 2. Mild degenerative changes of the hand and wrist. DATA REPOSITORY: RADIATION DOSE DELIVERED:
== END 2023-10-02 16:02 | disposition home or self-care (01) ==
LOC: DIORS 16:01
PROVIDERS: PCP Nurse Practitioner Family; Visit Provider Physician Assistant
DX: M24.831 Other specific joint derangements of right wrist, not elsewhere classified (principal)
CPT/HCPCS: 73130

== ENCOUNTER 2023-10-28 12:32 | Emergency (ER) | payer MEDICAID, SELFPAY ==
[2023-10-28] VITALS (40 sets, daily range): BP systolic 71–169; BP diastolic 46–139; PULSE 59–95; RESP 11–21; O2SAT 95
--- NOTE | 2023-10-28 12:30 | RT.EKG_ITS ---
APPROVED REPORT Exam: Resting ECG Reason for Exam: chest pressure Patient Location: E HR:61 bpm ECG Measurements Heart Rate 61 AXIS CO 159 P 52 QRSd 101 QRS 26 QT 434 T 43 QTc 439 Conclusion Sinus rhythm...normal P axis, V-rate 60- 99 Normal sinus rhythm at a rate of 61. Normal axis. CO and QTc within normal limits. Interventricula r conduction delay. Compared to prior dated last year interventricular conduction delay is new. No T wave inversions. No ST segment abnormalities. No acute injury pattern.
[2023-10-28] MEDS: Aspirin 81 MG CHEW 324 MG CH (12:46)
--- NOTE | 2023-10-28 13:00 | W.ED.GENAD ---
Discharge Plan Disposition Patient Disposition: Transfer-Acute Inpatient Care Specific Acute Inpt Facility: [facility] Discharge Details Clinical Impression: Acute non-ST elevation myocardial infarction (NSTEMI) Primary Care Provider: Ale Walls ED Provider: Shamika Mauro Home Meds and New Rx's Prescriptions: No Action rosuvastatin 10 mg tablet 10 mg PO DAILY Qty: 90 3RF meclizine 25 mg tablet 25 mg PO TID PRN (Reason: dizziness) Qty: 60 0RF cyclobenzaprine 5 mg tablet 5 - 10 mg PO TID PRN (Reason: muscle spasm) Qty: 60 0RF fluticasone propionate 50 mcg/actuation spray,suspension 1 spray NS BID PRN (Reason: nasal congestion) Qty: 16 1RF semaglutide 2 mg/dose (8 mg/3 mL) pen injector 2 mg subcut QWEEK Qty: 9 3RF Hold Instructions: On hold for surgery since 08/06 glipizide 5 mg tablet extended release 24hr 5 mg PO DAILY Qty: 90 3RF (DME) OneTouch Ultra Test Strip See Rx Instructions .MEDSUPPLY Qty: 200 3RF Rx Instructions: Check blood sugar twice a day (DME) blood-glucose meter [OneTouch Ultra2 Meter] Kit See Rx Instructions .MEDSUPPLY Qty: 1 2RF Rx Instructions: Check blood sugar twice a day (DME) lancets [OneTouch UltraSoft Lancets] Misc See Rx Instructions .MEDSUPPLY Qty: 200 4RF Rx Instructions: Check blood sugar twice a day estradiol [Estrace] 0.01 % (0.1 mg/gram) cream 1 g vaginal DAILY Qty: 42.5 0RF Rx Instructions: for 14 days, then decrease to twice weekly metformin 500 mg tablet 1,000 mg PO BID Qty: 360 3RF Rx Instructions: Take 2 tablets in the morning and 2 tablets in the evening citalopram [Celexa] 40 mg tablet 40 mg PO DAILY Qty: 90 3RF acetaminophen 500 mg tablet 1,000 mg PO TID Qty: 90 0RF ibuprofen 600 mg tablet 600 mg PO TID PRN (Reason: pain) Qty: 90 0RF HPI General Date/Time Provider Initiated Documentation: 10/28/23 12:36. HPI Narrative: Thea is a 58-year-old female with history of T2DM (on Ozempic and glipizide), HLD, and obesity who presents to the emergency department today for evaluation of sudden onset of epigastric pain that radiates to her shoulder blades, headache with neck discomfort, vomiting multiple times, palpitations like her heart is fluttering, and associated shortness of breath. She denies fever/chills, vision changes, recent illness such as congestion or cough, abdominal pain other than described above, change in bowel or bladder function, new pedal edema, extremity weakness/numbness. She does have a significant family history of cardiac disease, including in her siblings. Denies tobacco use. Denies history of bleeding disorder, GI bleeds, recent surgeries, stroke. Related Data Home Medications Medication Instructions Recorded Confirmed blood sugar diagnostic (OneTouch #200 ea 09/23/22 10/28/23 Ultra Test strips) blood-glucose meter (OneTouch #1 ea 09/23/22 10/28/23 Ultra2 Meter kit) lancets (OneTouch UltraSoft #200 ea 09/23/22 10/28/23 Lancets) estradiol 0.01% (0.1 mg/gram) 1 g vaginal DAILY #42.5 grams 10/03/22 10/28/23 vaginal cream (Estrace) citalopram 40 mg tablet (Celexa) 40 mg PO DAILY #90 tabs 11/23/22 10/28/23 metformin 500 mg tablet 1,000 mg (2 x 500 mg) PO BID #360 11/23/22 10/28/23 tabs meclizine 25 mg tablet 25 mg PO TID PRN dizziness #60 tabs 04/19/23 10/28/23 rosuvastatin 10 mg tablet 10 mg PO DAILY #90 tabs 04/19/23 10/28/23 fluticasone propionate 50 1 spray NS BID PRN nasal 05/01/23 10/28/23 mcg/actuation nasal congestion #16 grams spray,suspension cyclobenzaprine 5 mg tablet 5 - 10 mg (1 - 2 x 5 mg) PO TID 06/23/23 10/28/23 PRN muscle spasm #60 tabs semaglutide 2 mg/dose (8 mg/3 mL) 2 mg (0.75 mL) subcut QWEEK #9 mL 07/17/23 10/28/23 subcutaneous pen injector glipizide 5 mg tablet, extended 5 mg PO DAILY #90 tabs 08/21/23 10/28/23 release 24 hr acetaminophen 500 mg tablet 1,000 mg (2 x 500 mg) PO TID #90 08/23/23 10/28/23 tabs ibuprofen 600 mg tablet 600 mg PO TID PRN pain #90 tabs 08/23/23 10/28/23 Previous Rx's Medication Instructions Recorded blood sugar diagnostic (OneTouch #200 ea 09/23/22 Ultra Test strips) blood-glucose meter (OneTouch #1 ea 09/23/22 Ultra2 Meter kit) lancets (OneTouch UltraSoft #200 ea 09/23/22 Lancets) estradiol 0.01% (0.1 mg/gram) 1 g vaginal DAILY #42.5 grams 10/03/22 vaginal cream (Estrace) citalopram 40 mg tablet (Celexa) 40 mg PO DAILY #90 tabs 11/23/22 metformin 500 mg tablet 1,000 mg (2 x 500 mg) PO BID #360 11/23/22 tabs meclizine 25 mg tablet 25 mg PO TID PRN dizziness #60 tabs 04/19/23 rosuvastatin 10 mg tablet 10 mg PO DAILY #90 tabs 04/19/23 fluticasone propionate 50 1 spray NS BID PRN nasal 05/01/23 mcg/actuation nasal congestion #16 grams spray,suspension cyclobenzaprine 5 mg tablet 5 - 10 mg (1 - 2 x 5 mg) PO TID 06/23/23 PRN muscle spasm #60 tabs semaglutide 2 mg/dose (8 mg/3 mL) 2 mg (0.75 mL) subcut QWEEK #9 mL 07/17/23 subcutaneous pen injector glipizide 5 mg tablet, extended 5 mg PO DAILY #90 tabs 08/21/23 release 24 hr acetaminophen 500 mg tablet 1,000 mg (2 x 500 mg) PO TID #90 08/23/23 tabs ibuprofen 600 mg tablet 600 mg PO TID PRN pain #90 tabs 08/23/23 Allergies Allergy/AdvReac Type Severity Reaction Status Date / Time house dust AdvReac Unknown Other (See Verified 10/28/23 12:41 Comment) General Stated Complaint: Chest Pain WILNER: 2 Review of Systems Narrative: see HPI Exam Const General: cooperative, healthy appearing and comfortable HENMT Head: normal to inspection Mouth: oral mucosae normal Resp Effort & Inspection: normal respiratory effort and able to speak in complete sentences Auscultation: clear to auscultation bilaterally Cardio Jugular venous pressure: no JVD Rate: regular rate Rhythm: regular rhythm GI Inspection: normal to inspection Palpation: soft and nontender Neuro General: patient alert, patient awake, no meningeal signs and no focal motor deficits Cranial Nerves: CN's II-XI intact bilaterally, PERRL, EOM intact bilaterally, no nystagmus, facial strength normal, tongue midline and able to elevate shoulders bilaterally Cognition: normal cognition Speech: speech normal Motor: muscle tone normal throughout and strength 5/5 throughout Sensory Exam: no sensory deficits noted Coordination: [id number] test normal and rapid alternating movement UE normal Course Vital Signs Vital signs: Temperature Source Skin 10/28/23 12:36 Oxygen Delivery Method Room Air 10/28/23 12:36 Oxygen Flow Rate 0 10/28/23 12:36 Pain Level 8 10/28/23 12:36 Medical Decision Making Thea is a 58-year-old female with history of T2DM (on Ozempic and glipizide), HLD, and obesity who presents to the emergency department today for evaluation of sudden onset of epigastric pain that radiates to her shoulder blades, headache with neck discomfort, vomiting multiple times, palpitations like her heart is fluttering, and associated shortness of breath. She denies fever/chills, vision changes, recent illness such as congestion or cough, abdominal pain other than described above, change in bowel or bladder function, new pedal edema, extremity weakness/numbness. She does have a significant family history of cardiac disease, including in her siblings. Denies tobacco use. Denies history of bleeding disorder, GI bleeds, recent surgeries, stroke. Physical exam very reassuring. Easy work of breathing, lung sounds clear bilaterally. Normal heart sounds. Abdomen is soft, nondistended, nontender to palpation with normal active bowel sounds. Distal pulses equal bilaterally. Cranial nerves II through XII intact as tested. PERRL, EOMs intact. Normal finger to finger, rapid alternating movements. DDx includes but is not limited to: Aortic dissection, ACS, cardiac arrhythmia, GERD, esophageal spasm, pneumonia, pancreatitis, gallbladder dysfunction, viral gastritis I independently interpreted the following tests: EKG reassuring, normal sinus rhythm rate 61, no changes consistent with acute ischemia. Troponin elevated at 378. CBC, PT/INR and PTT, CMP all reassuring. CTA CTA reassuring, no aortic aneurysm or dissection noted. Upon arrival to the emergency department Thea received 324 mg aspirin and GI cocktail. APAP given for headache. 1345: [place] [facility] [place] Heparin initiated. Nitro given for chest discomfort. Recommend starting Plavix 600 mg PO once mediastinal widening ruled out. Will continue monitoring serial troponins and EKGs. Patient accepted, accepting physician Yannick. Awaiting bed assignment. 1515: After receiving 2 nitroglycerine patient reports resolution of chest pain, however developed dizziness and hypotension, with systolic blood pressure in the 80s. 1000 mL normal saline bolus given with improvement intermittent dizziness and improved blood pressure. Dr. Herrera at bedside to evaluate patient. Plavix given. 1600: Workup today consistent with NSTEMI. Ambulance en route [place] [facility] [place] Quality[place] Health Related Social Needs: No Data to Display Critical Care Time Critical Care Time Critical Care Time: Yes Total Critical Care Time: 45 Attestation: Approximately 45 minutes of critical care time given, including repeat EKGs, patient reassessments, and active management of hypotension status post nitroglycerin. PFSH All Active Problems (Updated 09/01/23 @ 10:54 by ANMOL Welsh) Acute non-ST elevation myocardial infarction (NSTEMI) (Acute) Mass of right wrist (Acute) S/P excision bony prominence: 08/23/2023 Medical History (Updated 10/28/23 @ 15:37 by Shamika Doran) Hearing loss Obesity Osteoarthritis Ganglion cyst of tendon sheath of right hand Plantar fasciitis of right foot Lymphedema of right lower extremity BPPV (benign paroxysmal positional vertigo) Chronic low back pain with left-sided sciatica Generalized anxiety disorder Major depressive disorder Hyperlipidemia Type 2 diabetes mellitus with diabetic neuropathy Surgical History (Updated 09/01/23 @ 10:54 by ANMOL Welsh) History of colonoscopy (~07/24/20) H/O sigmoidoscopy (08/02/17) S/P laparoscopic hysterectomy (10/23/15) For abnormal uterine bleeding; path benign History of bilateral tubal ligation S/P cholecystectomy History of section x 4 Status post bilateral salpingectomy (10/23/15) History of carpal tunnel surgery of right wrist Family History Mother Hyperlipidemia COPD (chronic obstructive pulmonary disease) Type 2 diabetes mellitus Hypertension Depression Father Depression Heart disease Hyperlipidemia Type 2 diabetes mellitus Carotid artery stenosis Alcohol abuse Diabetes Stroke Brother Heart disease Hyperlipidemia Depression Myocardial infarction Hypertension Brother Hyperlipidemia Hypertension Fatty liver Son Substance abuse Depression Alcohol abuse Son Alcohol abuse Depression Substance abuse Daughter No problems noted. Daughter Alcohol abuse Anxiety IBS (irritable bowel syndrome) Substance abuse Daughter Celiac disease Paternal Grandfather , at 75 Colon cancer Alcohol abuse Pancreatic cancer Paternal Grandmother , at 82 Stroke Maternal Grandfather , at 83 of CO Alcohol abuse Myocardial infarction Heart disease Hyperlipidemia Maternal Grandmother , at 76 of ovarian cancer Ovarian cancer in her 70s Breast cancer In her 60s Social History Smoking/Tobacco Use Status: Never Second Hand Exposure: Yes Smoking risk assessment performed?: Yes Alcohol Intake: former Drug use: Never Substance use type: does not use Adopted: No Household members: spouse and children Housing: house Communication Needs: None Do you need help understanding health information?: Rarely 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 Pets and animals: Yes Pets and animals: dog(s) Sexually active: Yes Do you think of yourself as: straight/heterosexual Current gender identity: female What is your relationship status?: How often do you talk on the phone with friends or family?: three or more times per week How often do you get together with friends or relatives?: three or more times per week How often do you attend mandaen or roman catholic services?: decline to answer Do you belong to any clubs or organized social groups?: no Panel score (0-1 are the most socially isolated patients): 2 What type of physical activity do you participate in: walking Duration: 30-45 minutes/day Frequency: 5-6 times per week Judy/Sabianist: No preference Do you feel safe at home: Yes Do you feel safe in your relationship?: Yes Female Reproductive History Menstrual Menopause type: surgical Date of menopause: 10/23/15 History History 4 Para Hx # Term Pregnancies Multiple births 1 Hx # Pregnancies Ectopic pregnancies AB induced Hx Number of Living Children 5 AB spontaneous Sign Out Sign Out Data: Sign Out Comment: 58-year-old female with history of T2DM, HLD, and strong family cardiac history presents to the emergency department today for evaluation of sudden onset sternal CP, vomiting, and headache. Workup significant for elevated troponin. EKG reassuring, no changes consistent with acute ischemia. Labs otherwise reassuring. Awaiting radiologist read of CTA. Patient did have episode of hypotension after receiving nitroglycerin x 2, blood pressure improved after 1 L NS bolus. [place] [facility] [place] care of [place]. Lanier. Advised that we will call back if any significant findings on CTA affect plan of care Last updated by Shamika Mauro at 10/28/23 15:42
[2023-10-28 13:09] LABS: HCT 44.6 % (36.0-46.0); HGB 14.9 g/dL (11.2-15.7); MCHC 33.4 % (32.0-36.0); MCV 96 fL (80-95); MPV 9.3 fL (8.0-11.0); Platelet Count 194 10^3/uL (130-400); RBC 4.66 10^6/uL (3.93-5.22); RDW 12.1 % (11.7-14.6); RDW-SD 42.5 fL; WBC 5.01 10^3/uL (4.4-10.8)
--- NOTE | 2023-10-28 13:15 | DI.CT_ITS ---
Exam(s) CT THORAX ABD/PEL CTA EXAM: CT THORAX ABD/PEL CTA CLINICAL HISTORY: epigastric pain radiating to back, vomiting, ROSE. TECHNIQUE: Imaging Protocol: Axial CT angiography was performed with multi-slice acquisition and m ulti-planar and/or 3D reconstructions. CONTRAST MATERIAL: Intravenous: Omnipaque 350 contrast volume:99 mL Oral: No COMPARISON: CT CT CHEST PE CTA from 11/29/2022 FINDINGS: CHEST: Tracheobronchial tree: Patent where visualized. Pulmonary parenchyma: No consolidation or dominant measurable mass. No architectural distortion. Pulmonary Arteries: No evidence of filling defect to suggest pulmonary emboli. Mediastinum and Ada: No dominant adenopathy or fluid collection. The esophagus is unremarkable. Visualized thyroid: Unremarkable. Pleura: No effusion or pneumothorax. Heart: The heart is not dilated. Coronary artery calcifications are present. No pericardial effusion . Aorta: Thoracic aorta non-dilated. No evidence of dissection. Soft Tissues: Unremarkable. Bones: Within normal limits for the patient's age. ABDOMEN AND PELVIS: Abdomen: Celiac axis/mesenteric arteries: No evidence of occlusion or significant stenosis. Renal Arteries: No evidence of occlusion or significant stenosis. Mild atherosclerosis at the origin of the left renal artery. No significant stenosis is seen. Aorta: No evidence of occlusion or significant stenosis. No aneurysm or dissection. Mild atheroscl erotic calcification. Pelvis: Iliac Arteries: No evidence of occlusion or significant stenosis. Mild atherosclerotic calcificatio n in the common iliac arteries bilaterally. Common Femoral Arteries: No evidence of occlusion or significant stenosis. ABDOMEN: Liver: Normal density. No measurable mass. Gallbladder and Biliary Tract: Status post cholecystectomy. There is mild prominence of the common b ile duct likely reflecting the post cholecystectomy state. Pancreas: Normal density, no abnormal calcifications or inflammatory process. Spleen: Normal. Adrenals: No masses seen. Kidneys: Normal size, contour and axis. No radiodense stones or obstructive uropathy. No masses seen. Bowel: No obstruction or bowel wall thickening. Appendix is unremarkable. Peritoneal Cavity: No ascites, collection or mesenteric inflammatory response. No free air. Lymph Nodes: Within normal limits. Bones: Within normal limits for the patient's age. Soft Tissues: Unremarkable. PELVIS: Bladder: Symmetric distention, no gross wall thickening. Reproductive Organs: Status post hysterectomy. Lymph Nodes: Within normal limits. Bones: Within normal limits for the patient's age. IMPRESSION: 1. No evidence of aortic dissection or aneurysm. 2. No acute pulmonary, abdominal or pelvic process. RADIATION DOSE DELIVERED: 1,258.38mGy.cm Total DLP DATA REPOSITORY: All CT scans at this facility are submitted to the National Radiology Data Registry (NRDR) Dose Index Registry (DIR) with the [employer] (ACR). RADIATION OPTIMIZATION: All CT scans at this facility use at least one of these dose optimization te chniques: automated exposure control; mA and/or kV adjustment per patient size (includes targeted exa ms where dose is matched to clinical indication); or iterative reconstruction.
[2023-10-28 13:17] LABS: Lipase 45 U/L (16-77)
[2023-10-28] MEDS: Ondansetron 4 MG/2 ML VIAL IVP ×2 (13:20→15:20)
[2023-10-28 13:30] LABS: ALT 33 U/L (14-59); AST 25 U/L (15-37); Albumin 3.8 g/dL (3.4-5.0); Alkaline Phosphatase 86 U/L (46-116); Anion Gap 11.7 mmol/L (3-11); BUN 11 mg/dL (7-18); Bilirubin, Total 0.5 mg/dL (0.2-1.0); CO2 28.3 mmol/L (21.0-32.0); CREATININE 0.6 mg/dL (0.55-1.02); Calcium 9.5 mg/dL (8.5-10.1); Chloride 102 mmol/L (98-107); Estimated GFR 104.63 (mL/min/1.73m2); Glucose 148 mg/dL (74-106); Potassium 3.9 mmol/L (3.5-5.1); Sodium 142 mmol/L (136-145); Total Protein 7.5 g/dL (6.4-8.2)
[2023-10-28 13:32] LABS: Troponin I 378 ng/L (< or =60)
[2023-10-28] MEDS: Lidocaine 2% Viscous 15 ML CUP (13:47)
[2023-10-28] MEDS: Heparin in 0.45% NaCl 25,000 UNIT/250 ML BAG 10 UNIT IV (13:55)
[2023-10-28] MEDS: Normal Saline - Diluent 50 ML VIAL IJ (14:02)
[2023-10-28] MEDS: Omnipaque 350 MG/ML 100 ML BTL IJ (14:03)
[2023-10-28] MEDS: Normal Saline Flush 10 ML SYR IVP ×2 (14:04→15:20)
[2023-10-28 14:09] LABS: INR 1.1 (0.9-1.1); PTT Activated 24.2 sec (23.6-32.8); Prothrombin Time 10.7 sec (9.1-11.1)
--- NOTE | 2023-10-28 14:15 | RT.EKG_ITS ---
APPROVED REPORT Exam: Resting ECG Reason for Exam: serial EKGs Patient Location: E HR:66 bpm ECG Measurements Heart Rate 66 AXIS MI 167 P 52 QRSd 105 QRS 36 QT 431 T 53 QTc 453 Conclusion Sinus rhythm...normal P axis, V-rate 60- 99 Normal sinus rhythm at a rate of 66. Normal axis. Interventricular conduction delay. New T wave fl attening in aVL. Mild inferior ST segment depressions and mild depression in V3 and V4.
[2023-10-28] MEDS: Acetaminophen 325 MG TAB 650 MG PO (15:02)
[2023-10-28] MEDS: Normal Saline 1,000 ML 2000 ML IV (15:25)
--- NOTE | 2023-10-28 15:52 | DI.VRAD_ITS ---
PROCEDURE INFORMATION: Exam: CTA Chest With Contrast CTA Abdomen and Pelvis With Contrast Exam date and time: 10/28/2023 2:32 PM Age: 58 years old Clinical indication: Other: Epigastric pain radiating to back, vomiting, ROSE; Abdominal pain; Prior surgery; Surgery date: 6+ months; Surgery type: Hyerectomy, cholecysectomy TECHNIQUE: Imaging protocol: Computed tomographic angiography of the chest with contrast. Exam focused on the arteries. Computed tomographic angiography of the abdomen and pelvis with contrast. Exam focused on the arteries. 3D rendering (Not supervised by radiologist): MIP and/or 3D reconstructed images were created by the technologist. Contrast material: OMNIPAQUE 350; Contrast volume: 100 ml; Contrast route: INTRAVENOUS (IV); COMPARISON: CT CHEST PE CTA 11/29/2022 8:38 PM FINDINGS: VASCULATURE: Pulmonary arteries: Normal. No pulmonary emboli. Aorta: No aortic aneurysm. No aortic dissection. Celiac trunk and mesenteric arteries: No occlusion or significant stenosis. Renal arteries: No occlusion or significant stenosis. Right iliac arteries: No occlusion or significant stenosis. Left iliac arteries: No occlusion or significant stenosis. CHEST: Lungs: Unremarkable. No consolidation. No masses. Pleural spaces: Unremarkable. No pneumothorax. No pleural effusion. Heart: No cardiomegaly. No pericardial effusion. Minimal amount of coronary artery calcification within the proximal circumflex and left anterior descending coronary artery. ABDOMEN AND PELVIS: Liver: No mass. Gallbladder and bile ducts: There has been a cholecystectomy. Pancreas: Unremarkable. No mass. No ductal dilation. Spleen: Unremarkable. No splenomegaly. Adrenal glands: Unremarkable. No mass. Kidneys and ureters: Unremarkable. No solid mass. No hydronephrosis. Stomach and bowel: Unremarkable. No obstruction. No mucosal thickening. Appendix: No evidence of appendicitis. Intraperitoneal space: Unremarkable. No free air. No significant fluid collection. Urinary bladder: Unremarkable. No mass. Reproductive: There has been a hysterectomy. Lymph nodes: Unremarkable. No enlarged lymph nodes. Bones/joints: Unremarkable. No acute fracture. Soft tissues: Unremarkable. IMPRESSION: No aortic aneurysm or dissection. No arterial occlusion or stenosis. Dictated and Authenticated by: Kiran Harper MD. Ordering:BRAD Wick MD
[2023-10-28] MEDS: Clopidogrel 300 MG TAB 600 MG PO (15:53)
[2023-10-28 16:27] LABS: Troponin I 2134 ng/L (< or =60)
--- NOTE | 2023-10-28 18:00 | RT.EKG_ITS ---
APPROVED REPORT Exam: Resting ECG Reason for Exam: NSTEMI Patient Location: E HR:63 bpm ECG Measurements Heart Rate 63 AXIS OH 204 P 13 QRSd 102 QRS 44 QT 457 T 65 QTc 466 Conclusion Sinus rhythm...normal P axis, V-rate 60- 99 Borderline prolonged OH interval...OH >202, V-rate 50- 90 Normal sinus rhythm at a rate of 63 with first-degree AV block new compared to prior. T wave flatten ing in aVL persistent. Mild ST segment depressions V3. Mild new ST segment elevation in lead I. Lorenzo bmillimeter. No significant changes compared to prior.
== END 2023-10-28 16:30 | disposition short-term general hospital (02) ==
PROVIDERS: Nurse Practitioner Family; Emergency Provider Physician Assistant; PCP Nurse Practitioner Family
DX: I21.4 Non-ST elevation (NSTEMI) myocardial infarction (principal); I95.9 Hypotension, unspecified; E78.5 Hyperlipidemia, unspecified; E11.40 Type 2 diabetes mellitus with diabetic neuropathy, unspecified; E66.9 Obesity, unspecified; Z79.85 Long-term (current) use of injectable non-insulin antidiabetic drugs; Z79.84 Long term (current) use of oral hypoglycemic drugs; Z82.49 Family history of ischemic heart disease and other diseases of the circulatory system
CPT/HCPCS: 36415; 71275; 80053; 83690; 85027; 93005; 96361; 96374; 96376; 99285; 74174; 84484; 85610; 85730; 93010; J1644; J2405; J3490

== ENCOUNTER 2023-11-15 05:20 | Outpatient (CLI) | payer MEDICAID, SELFPAY ==
--- NOTE | 2023-11-16 10:04 | TELEFU_ITS ---
Date of service: 11/15/23 Time of Service: 10:00 Nutrition Note NOTE: Thea came in for appt today with referral regarding: diabetes education and diet management for CAD (with recent NSTEMI this earlier this month) Thea takes metformin and recently, ozempic to help manage glucose and get some help with weight management. Was on glipizide but states she was shaky on it and taken off (most likely experiencing some hypoglycemia). A1C earlier this month was 7.9% She would like to do a little better with food choices and diet management/prevention. We reviewed some general approaches for her goals of wt mgt, better glycemic control and improving cardiovascular health. -pointed her towards more of a traditional food, plant-based diet, and aiming for daily food choices known to help mitigate inflammation and normalize glucose values. We reviewed trying to get daily servings of beans/legumes, nuts/seeds, non- starchy veggies, traditional grains like oats and really working on keeping added sugars to <30grams per day - we reviewed sources, how to track from reading labels and 1tsp of sweetener being 4g added sugar. We reviewed a little more detailed information on aiming around 1600-1800kcals (estimated needs at 1933kcals) and minimum of 90g protein. We looked at ed materials for estimating servings of 15grams of carbs and went over her goal of ~180g total carbs with at least 30g fiber and no more than 30g added sugar. We looked at some examples of menu planning for repeatable menus to help get into a rhythm of eating healthy food choices. We briefly discussed the added benefits of managing stress, getting good sleep, and getting some purposeful activity/exercise, with an emphasis on strength training. She took my card to contact should she desire follow up visit, more resources or specific help with menu planning. Time Spent in Nutritional Counseling and Treatment: 40 minutes
== END 2023-11-15 05:21 | disposition home or self-care (01) ==
PROVIDERS: PCP Nurse Practitioner Family; Visit Provider Dietitian, Registered
DX: E11.9 Type 2 diabetes mellitus without complications (principal)
CPT/HCPCS: 00123; 97802

== ENCOUNTER 2023-11-24 09:51 | Outpatient (CLI) | payer MEDICAID, SELFPAY ==
--- NOTE | 2023-11-24 09:45 | RT.EKG_ITS ---
APPROVED REPORT Exam: Resting ECG Reason for Exam: Prolonged QT interval Patient Location: O HR:58 bpm ECG Measurements Heart Rate 58 AXIS WA 158 P 55 QRSd 105 QRS 43 QT 454 T 74 QTc 446 Conclusion Sinus rhythm...normal P axis, V-rate 50- 99 Otherwise normal ECG
== END 2023-11-24 09:52 | disposition home or self-care (01) ==
PROVIDERS: PCP Nurse Practitioner Family; Visit Provider Nurse Practitioner Family
DX: I25.10 Atherosclerotic heart disease of native coronary artery without angina pectoris (principal); R94.31 Abnormal electrocardiogram [ECG] [EKG]
CPT/HCPCS: 93005; 93010

== ENCOUNTER 2023-12-08 07:54 | Outpatient (CLI) | payer MEDICAID, SELFPAY ==
--- NOTE | 2023-12-08 07:45 | RT.EKG_ITS ---
APPROVED REPORT Exam: Resting ECG Reason for Exam: cardiac evaluation Patient Location: O HR:70 bpm ECG Measurements Heart Rate 70 AXIS NM 156 P 56 QRSd 98 QRS 31 QT 412 T 53 QTc 445 Conclusion Sinus rhythm...normal P axis, V-rate 50- 99 RSR' in V1 or V2, Otherwise normal ECG Baseline wander in lead(s) I,III,aVL,V1
== END 2023-12-08 07:55 | disposition home or self-care (01) ==
LOC: DI.CARD 07:55
PROVIDERS: PCP Nurse Practitioner Family; Visit Provider Internal Medicine Cardiovascular Disease
DX: I25.10 Atherosclerotic heart disease of native coronary artery without angina pectoris (principal); E78.5 Hyperlipidemia, unspecified
CPT/HCPCS: 93010

== ENCOUNTER 2023-12-08 16:48 | Outpatient (REF) | payer MEDICAID, SELFPAY ==
[2023-12-08 15:06] LABS: Microalb ug/mg Crea 11.9 ug/mg Cr
== END 2023-12-08 16:49 | disposition home or self-care (01) ==
LOC: LBN 16:48
PROVIDERS: PCP Nurse Practitioner Family; Visit Provider Nurse Practitioner Family
DX: E11.9 Type 2 diabetes mellitus without complications (principal)
CPT/HCPCS: 82043; 82570

== ENCOUNTER 2023-12-15 09:00 | Outpatient (RCR) | payer MEDICAID, SELFPAY | END 2023-12-17 23:59 | disposition home or self-care (01) | LOC: CR 09:00 | PROVIDERS: PCP Nurse Practitioner Family; Visit Provider Internal Medicine Cardiovascular Disease | DX: I21.4 Non-ST elevation (NSTEMI) myocardial infarction (principal) | CPT/HCPCS: S9472 ==

== ENCOUNTER 2024-01-15 10:12 | Outpatient (RCR) | payer MEDICAID, SELFPAY | END 2024-01-17 23:59 | disposition home or self-care (01) | LOC: CR 10:12 | PROVIDERS: PCP Nurse Practitioner Family; Visit Provider Internal Medicine Cardiovascular Disease | DX: I21.4 Non-ST elevation (NSTEMI) myocardial infarction (principal) | CPT/HCPCS: S9472 ==

== ENCOUNTER 2024-02-16 10:24 | Outpatient (RCR) | payer MEDICAID, SELFPAY | END 2024-02-17 23:59 | disposition home or self-care (01) | LOC: CR 10:24 | PROVIDERS: PCP Nurse Practitioner Family; Visit Provider Internal Medicine Cardiovascular Disease | DX: I21.4 Non-ST elevation (NSTEMI) myocardial infarction (principal); Z51.89 Encounter for other specified aftercare | CPT/HCPCS: S9472 ==

== ENCOUNTER 2024-03-28 14:09 | Outpatient (CLI) | payer OTHER, SELFPAY ==
--- NOTE | 2024-03-28 14:00 | RT.EKG_ITS ---
APPROVED REPORT Exam: Resting ECG Reason for Exam: palpitations Patient Location: O HR:66 bpm ECG Measurements Heart Rate 66 AXIS DC 156 P 67 QRSd 102 QRS 38 QT 454 T 47 QTc 476 Conclusion Sinus rhythm...normal P axis, V-rate 50- 99 Abnormal R-wave progression, early transition...QRS area>0 in V2 Otherwise normal ECG
== END 2024-03-28 14:10 | disposition home or self-care (01) ==
LOC: DI.CM 14:10
PROVIDERS: PCP Nurse Practitioner Family; Visit Provider Nurse Practitioner Family
DX: R00.2 Palpitations (principal)
CPT/HCPCS: 93010

== ENCOUNTER 2024-03-28 21:08 | Outpatient (REF) | payer OTHER, SELFPAY ==
[2024-03-28 21:38] LABS: Abs Immature Grans 0.01 10^3/uL (0.0-0.06); Absolute Basophil Count 0.04 10^3/uL (0.0-0.2); Absolute Eosinophil Count 0.14 10^3/uL (0.0-0.7); Absolute Lymphocyte Count 1.73 10^3/uL (1.2-3.4); Absolute Neutrophil Count 3.53 10^3/uL (1.2-6.7); Basophils % 0.7 %; Eosinophils % 2.3 %; HCT 42.6 % (36.0-46.0); HGB 14.3 g/dL (11.2-15.7); Immature Grans % 0.2 %; Lymphocytes % 28.6 %; MCH 32.3 pg (27.0-33.0); MCHC 33.6 % (32.0-36.0); MCV 96 fL (80-95); Monocytes % 9.9 %; Neutrophils % 58.3 %; Platelet Count 197 10^3/uL (130-400); RBC 4.43 10^6/uL (3.93-5.22); RDW 11.9 % (11.7-14.6); RDW-SD 41.8 fL; WBC 6.05 10^3/uL (4.4-10.8)
[2024-03-28 21:44] LABS: ALT 26 U/L (14-59); AST 26 U/L (15-37); Albumin 3.9 g/dL (3.4-5.0); Alkaline Phosphatase 83 U/L (46-116); Anion Gap 11.3 mmol/L (3-11); BUN 17 mg/dL (7-18); CO2 24.7 mmol/L (21.0-32.0); CREATININE 0.8 mg/dL (0.55-1.02); Calcium 9.4 mg/dL (8.5-10.1); Chloride 104 mmol/L (98-107); Estimated GFR 85.35 (mL/min/1.73m2); Glucose 122 mg/dL (74-106); Potassium 4.4 mmol/L (3.5-5.1); Sodium 140 mmol/L (136-145); Total Protein 7.5 g/dL (6.4-8.2)
== END 2024-03-28 21:09 | disposition home or self-care (01) ==
LOC: LBN 21:08
PROVIDERS: PCP Nurse Practitioner Family; Visit Provider Nurse Practitioner Family
DX: R11.0 Nausea (principal)
CPT/HCPCS: 80053; 85025

== ENCOUNTER 2024-05-29 17:37 | Emergency (ER) | payer SELFPAY ==
[2024-05-29 17:41] VITALS: BP 150/81; PULSE 56; RESP 20; TEMP 36.8; O2SAT 98
--- NOTE | 2024-05-29 18:00 | DI.CT_ITS ---
Exam(s) CT HEAD FACIAL WO EXAM: CT HEAD FACIAL WO CLINICAL HISTORY: head trauma, frontal ROSE, L cheek pain. TECHNIQUE: Imaging Protocol: Axial computed tomography images with coronal and sagittal reformatted images were created and reviewed COMPARISON: CT HEAD AND CSPINE W/O CONTRAST from 05/25/2017 FINDINGS: CT Head: Ventricles and Extra axial spaces: Normal in size and morphology for the patient's age. Hemorrhage: None. Cerebral parenchyma: Normal. Midline shift: None. Brainstem/Cerebellum: Normal. Calvarium: Normal. Visualized Paranasal sinuses/Mastoids: Clear. Soft Tissues: Unremarkable. CT Face: Facial Bones: No fracture is noted in facial bones. Sinuses and Mastoids: Unremarkable. Globes, extraocular muscles, optic nerves and retrobulbar fat: Normal. Upper aerodigestive tract: Normal. Mandible and bilateral temporomandibular joints: Degenerative changes. No dislocation or subluxatio n. Soft tissues: Normal. IMPRESSION: 1. No acute intracranial process. 2. No acute facial fracture. RADIATION DOSE DELIVERED: Total DLP DATA REPOSITORY: All CT scans at this facility are submitted to the National Radiology Data Registry (NRDR) Dose Index Registry (DIR) with the [employer] (ACR). RADIATION OPTIMIZATION: All CT scans at this facility use at least one of these dose optimization te chniques: automated exposure control; mA and/or kV adjustment per patient size (includes targeted exa ms where dose is matched to clinical indication); or iterative reconstruction.
--- NOTE | 2024-05-29 18:00 | ED.GENADUL_ITS ---
Discharge Plan Disposition Patient Disposition: Home Condition: Stable Discharge Details Clinical Impression: Concussion, Right wrist sprain, Elevated blood pressure reading Primary Care Provider: Ale Walls ED Provider: Shamika Mauro Home Meds and New Rx's Prescriptions: Continued fluticasone propionate 50 mcg/actuation spray,suspension 1 spray NS BID PRN (Reason: nasal congestion) Qty: 16 1RF citalopram [Celexa] 40 mg tablet 40 mg PO DAILY Qty: 90 3RF (DME) OneTouch Ultra Test Strip See Rx Instructions .MEDSUPPLY Qty: 200 3RF Rx Instructions: Check blood sugar twice a day (DME) lancets Misc See Rx Instructions .MEDSUPPLY Qty: 200 4RF Rx Instructions: Check blood sugar twice a day rosuvastatin 40 mg tablet 40 mg PO DAILY Qty: 90 3RF prasugrel 10 mg tablet 10 mg PO DAILY Qty: 90 3RF aspirin 81 mg tablet,chewable 81 mg PO DAILY Qty: 90 3RF estradiol [Estrace] 0.01 % (0.1 mg/gram) cream 1 g vaginal .Twice a week Qty: 42.5 1RF metformin 500 mg tablet 1,000 mg PO BID Qty: 360 3RF Rx Instructions: Take 2 tablets in the morning and 2 tablets in the evening ondansetron 4 mg tablet,disintegrating 4 mg PO Q6H PRN (Reason: nausea and vomiting) Qty: 30 0RF (DME) blood-glucose meter [OneTouch Ultra2 Meter] Kit See Rx Instructions .MEDSUPPLY Qty: 1 2RF Rx Instructions: Check blood sugar twice a day nitroglycerin 0.4 mg tablet, sublingual 0.4 mg sublingual Q5M PRN Rx Instructions: do not exceed 3 doses per episode acetaminophen 500 mg tablet 1,000 mg PO TID Qty: 90 0RF Discharge Instructions Instructions: Concussion in adults Additional Instructions: Please call your primary care provider's office first thing in the morning to schedule follow-up appointment for reevaluation of your concussion and wrist sprain. Your head CT, facial CT, and wrist x-ray were all reassuring, no fracture or bleeding noted. Your symptoms are most consistent with a concussion. Please rest, being sure to avoid bright lights, screen time, and mental taxation. Get plenty of rest. Eat regular meals and stay well-hydrated. You may use Tylenol as needed for discomfort. I recommend that you not exercise any more than a gentle walk until you are cleared by primary care. You may use the wrist splint as needed for discomfort. Ice may also be helpful for swelling, as well as elevation. Return to emergency care if you develop new vision changes, severe headache, uncontrollable vomiting, difficulty breathing, chest pain, extremity weakness, or if you are very worried you need to be rechecked again immediately Stand Alone Forms: Work Release Referrals: Ale Walls NP [Primary Care Provider] - [facility] General Date/Time Provider Initiated Documentation: 05/29/24 17:41 . HPI Narrative: Thea is a 59 year old female who presents to the emergency department today for evaluation of facial and head injury. 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 This occurred around 3:30 PM. No loss of consciousness. She has had a frontal headache and left cheek/upper jaw pain since then, along with intermittent dizziness with position change. She initially had a nosebleed which resolved with ice and pressure, no drainage from ears. She wears dentures, says she did not have any bleeding from her gums or oral damage noted. Denies neck pain, chest pain, shortness of breath, nausea/vomiting, vision changes, extremity weakness. Mild discomfort to her right wrist, she says that usually gives her some discomfort but has been bothering her a bit more since the fall, not sure how she landed on it. Also reports some mild left knee pain which has since resolved and does not interfere with ambulation. Past medical history is significant for ganglion cyst removal from right wrist, T2DM, CAD, and NSTEMI, she is currently taking antiplatelet and ASA. Physical exam reassuring. Thea is alert and oriented, no acute distress. PERRL, EOMs intact. Cranial nerves II through XII intact as tested. Normal facial strength. No intraoral bleeding. Abrasions noted to bridge of nose. No septal hematoma noted or active bleeding at this time. Tenderness to palpation of left cheek and along bony ridge of nose. No intraoral damage noted, she does have tenderness to palpation of left upper jaw. No trismus. No hemotympanums or drainage from ears. Full painless range of motion of neck. No C-spine/T-spine/L-spine step-off/tenderness/deformity. Easy work of breathing, lung sounds clear bilaterally. Normal heart sounds. No tenderness to palpation of chest wall. Abdomen is soft, nondistended, nontender palpation. Full painless range of motion of extremities, except for the right wrist which she does have decreased range of motion due to discomfort. No obvious deformity noted to right wrist, abrasion/laceration/skin tears. Sensation distally intact to right hand, brisk cap refill. Faint ecchymosis noted to right knee, full painless range of motion, no point tenderness or deformity. D/dx includes but is not limited to: Intracranial hemorrhage (higher suspicion based on antiplatelet therapy), concussion, facial bone fracture, contusions, right wrist sprain or fracture. No red flags concerning for fracture of left knee or spinal/neck injury. I independently interpreted the following tests: Head and facial CT reassuring, no obvious fracture or intracranial bleeding. No fracture noted on right wrist x-ray. Findings confirmed by radiologist. While in the emergency department, Thea received Tylenol for headache. Pressure was elevated today in the emergency department, likely due to pain, however as patient does have a history of CAD, recommend close follow-up with PCP. Thea says that she had been on blood pressure medications but, but then had problems with low blood pressure. Advised her to recheck her blood pressure at home and discuss this with primary care later this week. Overall workup today reassuring. Headache consistent with concussion, while facial pain is most likely due to contusions/soft tissue injury. Provided wrist splint for probable sprain. Reviewed discharge instructions with patient, including symptomatic management, concussion precautions, and red flags indicating need for return to emergency care Related Data Home Medications ?Medication ?Instructions ?Recorded ?Confirmed blood-glucose meter ([employer] #1 ea 09/23/22 05/29/24 Ultra2 Meter kit) fluticasone propionate 50 1 spray NS BID PRN nasal 05/01/23 05/29/24 mcg/actuation nasal congestion #16 grams spray,suspension acetaminophen 500 mg tablet 1,000 mg (2 x 500 mg) PO TID #90 08/23/23 05/29/24 tabs nitroglycerin 0.4 mg sublingual 0.4 mg sublingual Q5M PRN 11/01/23 05/29/24 tablet aspirin 81 mg chewable tablet 81 mg PO DAILY #90 tabs 11/08/23 05/29/24 blood sugar diagnostic (OneTouch #200 ea 11/08/23 05/29/24 Ultra Test strips) estradiol 0.01% (0.1 mg/gram) 1 g vaginal .Twice a week #42.5 11/08/23 05/29/24 vaginal cream (Estrace) grams lancets #200 ea 11/08/23 05/29/24 metformin 500 mg tablet 1,000 mg (2 x 500 mg) PO BID #360 11/08/23 05/29/24 tabs prasugrel 10 mg tablet 10 mg PO DAILY #90 tabs 11/08/23 05/29/24 rosuvastatin 40 mg tablet 40 mg PO DAILY #90 tabs 11/08/23 05/29/24 citalopram 40 mg tablet (Celexa) 40 mg PO DAILY #90 tabs 12/08/23 05/29/24 ondansetron 4 mg disintegrating 4 mg PO Q6H PRN nausea and 03/28/24 05/29/24 tablet vomiting #30 tabs Previous Rx's ?Medication ?Instructions ?Recorded blood-glucose meter (OneTouch #1 ea 09/23/22 Ultra2 Meter kit) fluticasone propionate 50 1 spray NS BID PRN nasal 05/01/23 mcg/actuation nasal congestion #16 grams spray,suspension acetaminophen 500 mg tablet 1,000 mg (2 x 500 mg) PO TID #90 08/23/23 tabs aspirin 81 mg chewable tablet 81 mg PO DAILY #90 tabs 11/08/23 blood sugar diagnostic (OneTouch #200 ea 11/08/23 Ultra Test strips) estradiol 0.01% (0.1 mg/gram) 1 g vaginal .Twice a week #42.5 11/08/23 vaginal cream (Estrace) grams lancets #200 ea 11/08/23 metformin 500 mg tablet 1,000 mg (2 x 500 mg) PO BID #360 11/08/23 tabs prasugrel 10 mg tablet 10 mg PO DAILY #90 tabs 11/08/23 rosuvastatin 40 mg tablet 40 mg PO DAILY #90 tabs 11/08/23 citalopram 40 mg tablet (Celexa) 40 mg PO DAILY #90 tabs 12/08/23 ondansetron 4 mg disintegrating 4 mg PO Q6H PRN nausea and 03/28/24 tablet vomiting #30 tabs Allergies Allergy/AdvReac Type Severity Reaction Status Date / Time house dust AdvReac Unknown Other (See Verified 05/29/24 17:43 Comment) General Stated Complaint: HeadInjury WILNER: 3 Review of Systems Narrative: see HPI Exam Const General: cooperative, healthy appearing, comfortable, no acute distress, well developed and well groomed Nutritional Appearance: average body habitus Orientation: alert and oriented x3 HENMT Head: normocephalic, no Castelan's sign, no hematomas, no lacerations, no palpable skull fracture, no raccoon eyes, no scalp lesions and no scalp tenderness Ears: hearing grossly normal bilaterally, external ears normal and TM's normal bilaterally General nose exam: nares normal, septum normal, no epistaxis, no nasal discharge noted, normal septum and other (Abrasion noted on bridge of nose, likely from glasses) Face and sinus: face symmetric, no crepitus and tenderness on the left malar area Face images: 2 1. area of tenderness to palpation, no obvious deformity or crepitus Mouth: oral mucosae normal, tongue normal, oropharynx normal, moist mucous membranes and no muffled voice Teeth and gingiva: dentures Throat: posterior oropharynx normal and no postnasal drainage Eyes Periorbital: periorbital findings normal Eyelids: eyelids normal Pupils: PERRL EOM: EOM intact bilaterally Neck Neck: normal visual inspection, full ROM and no lymphadenopathy Chest Chest: normal inspection of the chest and normal palpation of entire chest wall Resp Effort & Inspection: normal respiratory effort and able to speak in complete sentences Auscultation: clear to auscultation bilaterally Cardio Rate: regular rate Rhythm: regular rhythm Pulses: radial pulses present GI Inspection: normal to inspection and non-distended Palpation: soft, not firm, no guarding, not rigid and nontender Back/Spine/Pelvis Cervical Spine: normal cervical lordosis and cervical ROM normal Thoracic/Lumbar Spine: thoracic and lumbar spine normal to inspection Skin General skin exam: ecchymosis (faint to L knee) Trauma: abrasion (bridge of nose) Neuro General: patient alert, patient oriented x3, gait normal, tone normal, moves all extremities, no focal motor deficits and CN's II-XI intact bilaterally Cranial Nerves: CN's II-XI intact bilaterally, PERRL, EOM intact bilaterally, no nystagmus and facial strength normal Cognition: normal cognition Speech: speech normal Gait: normal gait Motor: muscle tone normal throughout and strength 5/5 throughout Sensory Exam: no sensory deficits noted Extrem Right upper extremity: wrist Details: tenderness, abnormal ROM (Decreased flexion and extension due to discomfort), normal vascular exam, radial pulse present and ulnar pulse present; no swelling, no unusual warmth, no lacerations, no ecchymosis, no crepitus and no foreign body and hand Details: normal to inspection Right lower extremity: normal to inspection Left lower extremity: knee (Eye ecchymosis) Details: normal ROM; no tenderness, no swelling, no abrasions, no lacerations, no crepitus, no foreign bodies, no deformity and no unusual warmth Course Vital Signs Vital signs: Vital Signs Temperature 36.8 C 05/29/24 17:41 Pulse 56 L 05/29/24 17:41 Respiratory Rate 20 05/29/24 17:41 Blood Pressure 150/81 H 05/29/24 17:41 Pulse Oximetry 98 05/29/24 17:41 Temperature 36.8 C 05/29/24 17:41 Pulse 56 L 05/29/24 17:41 Respiratory Rate 20 05/29/24 17:41 Respiratory Effort Normal 05/29/24 17:46 Blood Pressure 150/81 H 05/29/24 17:41 Pulse Oximetry 98 05/29/24 17:41 Oxygen Delivery Method Room Air 05/29/24 17:41 Oxygen Flow Rate 0 05/29/24 17:41 Pain Level 7 05/29/24 17:41 Medical Decision Making Imaging Data Radiologic Study: Radiologist's impression: Accession No. : [id number] Creator : MALGORZATA WARD Dictator : MALGORZATA WARD Merry Go Round Attendant : Filler Shredder Helper : MALGORZATA WARD Approver2 : Report Date : 05/29/2024 18:24:15 * Exam(s) XR WRIST RT COMPLETE EXAM: XR WRIST RT COMPLETE CLINICAL HISTORY: Generalized wrist pain after fall. TECHNIQUE: 2D digital imaging was performed. Three views. COMPARISON: CR XR HAND RT COMPLETE from 10/02/2023 FINDINGS: BONES: No acute fracture is present. No bony destructive lesion is seen. JOINTS: Negative ulnar variance. Mild degenerative changes. SOFT TISSUE: Soft tissue swelling around the wrist. No foreign body. IMPRESSION: Soft tissue swelling. No acute abnormality. Radiologic Study #2: Radiologist's impression: Accession No. : [id number] Creator : MALGORZATA WARD Dictator : MALGORZATA WARD Merry Go Round Attendant : Filler Shredder Helper : MALGORZATA WARD Approver2 : Report Date : 05/29/2024 18:28:54 * Exam(s) CT HEAD FACIAL WO EXAM: CT HEAD FACIAL WO CLINICAL HISTORY: head trauma, frontal ROSE, L cheek pain. TECHNIQUE: Imaging Protocol: Axial computed tomography images with coronal and sagittal reformatted images were created and reviewed COMPARISON: CT HEAD AND CSPINE W/O CONTRAST from 05/25/2017 FINDINGS: CT Head: Ventricles and Extra axial spaces: Normal in size and morphology for the patient's age. Hemorrhage: None. Cerebral parenchyma: Normal. Midline shift: None. Brainstem/Cerebellum: Normal. Calvarium: Normal. Visualized Paranasal sinuses/Mastoids: Clear. Soft Tissues: Unremarkable. CT Face: Facial Bones: No fracture is noted in facial bones. Sinuses and Mastoids: Unremarkable. Globes, extraocular muscles, optic nerves and retrobulbar fat: Normal. Upper aerodigestive tract: Normal. Mandible and bilateral temporomandibular joints: Degenerative changes. No dislocation or subluxation. Soft tissues: Normal. IMPRESSION: 1. No acute intracranial process. 2. No acute facial fracture. Quality:SDOH Health Related Social Needs: 2 No Data to Display PFSH All Active Problems Elevated blood pressure reading (Acute) Right wrist sprain (Acute) Concussion (Acute) Nausea (Acute) CAD (coronary artery disease) (Chronic) NSTEMI 2023 s/p JULIANN to LAD Type 2 diabetes mellitus with diabetic neuropathy (Chronic) Hyperlipidemia (Chronic) Major depressive disorder (Chronic) Generalized anxiety disorder (Chronic) Chronic low back pain with left-sided sciatica (Chronic) BPPV (benign paroxysmal positional vertigo) (Chronic) Lymphedema of right lower extremity (Chronic) Plantar fasciitis of right foot (Chronic) Ganglion cyst of tendon sheath of right hand (Chronic) Obesity (Chronic) Hearing loss (Chronic) Mass of right wrist (Chronic) S/P excision bony prominence: 08/23/2023 Medical History NSTEMI (non-ST elevated myocardial infarction) (10/2023) Surgical History History of colonoscopy (~07/24/20) H/O sigmoidoscopy (08/02/17) S/P laparoscopic hysterectomy (10/23/15) For abnormal uterine bleeding; path benign History of bilateral tubal ligation S/P cholecystectomy History of section x 4 Status post bilateral salpingectomy (10/23/15) History of carpal tunnel surgery of right wrist Family History (Updated 02/15/24 @ 10:51 by Ale Walls NP) Mother Hyperlipidemia COPD (chronic obstructive pulmonary disease) Type 2 diabetes mellitus Hypertension Depression Stroke Dementia Father Depression Heart disease Hyperlipidemia Type 2 diabetes mellitus Carotid artery stenosis Alcohol abuse Diabetes Stroke Brother Heart disease Hyperlipidemia Depression Myocardial infarction Hypertension Brother Hyperlipidemia Hypertension Fatty liver Son Substance abuse Depression Alcohol abuse Son Alcohol abuse Depression Substance abuse Daughter No problems noted. Daughter Alcohol abuse Anxiety IBS (irritable bowel syndrome) Substance abuse Daughter Celiac disease Paternal Grandfather , at 75 Colon cancer Alcohol abuse Pancreatic cancer Paternal Grandmother , at 82 Stroke Maternal Grandfather , at 83 of [place] Alcohol abuse Myocardial infarction Heart disease Hyperlipidemia Maternal Grandmother , at 76 of ovarian cancer Ovarian cancer in her 70s Breast cancer In her 60s Social History Smoking/Tobacco Use Status: Never Second Hand Exposure: Yes Smoking risk assessment performed?: Yes Alcohol Intake: former Drug use: Never Substance use type: does not use Adopted: No Household members: spouse and children Housing: house Communication Needs: None Do you need help understanding health information?: Rarely 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 Pets and animals: Yes Pets and animals: dog(s) Sexually active: Yes Do you think of yourself as: straight/heterosexual Current gender identity: female What is your relationship status?: How often do you talk on the phone with friends or family?: three or more times per week How often do you get together with friends or relatives?: three or more times per week How often do you attend tenriism or samaritan services?: decline to answer Do you belong to any clubs or organized social groups?: no Panel score (0-1 are the most socially isolated patients): 2 What type of physical activity do you participate in: walking Duration: 30-45 minutes/day Frequency: 5-6 times per week Judy/Nondenominational: No preference Do you feel safe at home: Yes Do you feel safe in your relationship?: Yes Female Reproductive History Menstrual Menopause type: surgical Date of menopause: 10/23/15 History History 2 4 Para Hx # Term Pregnancies Multiple births 1 Hx # Pregnancies Ectopic pregnancies AB induced Hx Number of Living Children 5 AB spontaneous
[2024-05-29] MEDS: Acetaminophen 325 MG TAB 650 MG PO (18:05)
--- NOTE | 2024-05-29 18:20 | DI.RAD_ITS ---
Exam(s) XR WRIST RT COMPLETE EXAM: XR WRIST RT COMPLETE CLINICAL HISTORY: Generalized wrist pain after fall. TECHNIQUE: 2D digital imaging was performed. Three views. COMPARISON: CR XR HAND RT COMPLETE from 10/02/2023 FINDINGS: BONES: No acute fracture is present. No bony destructive lesion is seen. JOINTS: Negative ulnar variance. Mild degenerative changes. SOFT TISSUE: Soft tissue swelling around the wrist. No foreign body. IMPRESSION: Soft tissue swelling. No acute abnormality. DATA REPOSITORY: RADIATION DOSE DELIVERED:
[2024-05-29 18:36] VITALS: BP 152/75; PULSE 54; RESP 14; O2SAT 100
[2024-05-29 19:07] VITALS: BP 180/88; PULSE 51; RESP 16; TEMP 36.6; O2SAT 100
--- NOTE | 2024-05-30 10:48 | NUR.NOTE ---
Access chart to get the discharge diagnosis for [facility] billing form. Nursing Note:
== END 2024-05-29 19:14 | disposition home or self-care (01) ==
PROVIDERS: Emergency Provider Nurse Practitioner Family; PCP Nurse Practitioner Family
DX: S06.0X0A Concussion without loss of consciousness, initial encounter (principal); S63.501A Unspecified sprain of right wrist, initial encounter; S00.81XA Abrasion of other part of head, initial encounter; S80.212A Abrasion, left knee, initial encounter; R03.0 Elevated blood-pressure reading, without diagnosis of hypertension; I25.10 Atherosclerotic heart disease of native coronary artery without angina pectoris; I25.2 Old myocardial infarction; E11.40 Type 2 diabetes mellitus with diabetic neuropathy, unspecified; Z79.82 Long term (current) use of aspirin; Z79.84 Long term (current) use of oral hypoglycemic drugs; W01.0XXA Fall on same level from slipping, tripping and stumbling without subsequent striking against object, initial encounter; Y93.01 Activity, walking, marching and hiking; Y92.210 Daycare center as the place of occurrence of the external cause; Y99.0 Civilian activity done for income or pay
CPT/HCPCS: 99284; 70450; 70486; 73110

== ENCOUNTER 2024-07-19 15:00 | Outpatient (CLI) | payer OTHER, SELFPAY ==
--- NOTE | 2024-07-19 14:30 | DI.RAD_ITS ---
Exam(s) XR RIBS ONLY RT EXAM: XR RIBS ONLY RT CLINICAL HISTORY: fall, right rib pain, PLEURODYNIA, R07.81. COMPARISON: No exams were available for comparison FINDINGS: Four images were obtained. LUNGS: Clear. No pneumothorax is seen. BONES: No displaced rib fracture is seen. No bony destructive lesion is seen. IMPRESSION: Unremarkable radiographic appearance of the right ribs. If there is continued clinical concern, a CT scan of the chest may be obtained for further evaluation.
== END 2024-07-19 15:20 ==
LOC: DI 15:00
PROVIDERS: PCP Nurse Practitioner Family; Visit Provider Nurse Practitioner Family
DX: R07.81 Pleurodynia (principal)
CPT/HCPCS: 71100

== ENCOUNTER → 2025-06-13 00:08 | Outpatient (CLI) | payer OTHER, SELFPAY ==
--- NOTE | 2025-06-13 07:58 | DI.MAMMO_ITS ---
Exam(s) MAMMO SCREENING EXAM: MAMMO SCREENING CLINICAL HISTORY: screening Z12.39. TECHNIQUE: Bilateral full field digital CC and MLO mammographic images were obtained with 3D tomosynthesis and utilizing computer aided detection (CAD). COMPARISON: Prior mammograms were reviewed. FINDINGS: There has been no significant change in the appearance and distribution of the fibroglandular tissue. There are no CAD designations. There are no new spiculated masses nor malignant appearing microcalcification groups. There is no significant architectural distortion nor skin thickening-retraction. IMPRESSION: No radiographic evidence of malignancy. BI-RADS Category 1 - Negative Breast Density - Category B - There are scattered areas of fibroglandular density. Breast density Category C or D implies that the patient has dense breast tissue. Dense breast tissue can make it harder to find cancer on a mammogram. Dense breast tissue is also associated with an increased risk of breast cancer. This information about the result of the mammogram report was provided to the patient to raise their awareness. Use this report when you speak with the patient about their risks for breast cancer, which includes their family history. At that time, you may recommend additional screening tests (Ultrasound or MRI) as these tests may add significant information. A negative radiographic report should not delay biopsy if a dominant or clinically suspicious mass is present. Up to ten percent of cancers are not identified on mammography. A negative report may reinforce clinical impression. Adenosis and dense breasts may obscure an underlying neoplasm. False positive reports average 6 to 10%. Patient will receive a letter notifying them of these results.
== END ==
LOC: DI 00:08
PROVIDERS: PCP Nurse Practitioner Family; Visit Provider Nurse Practitioner Family
DX: Z12.31 Encounter for screening mammogram for malignant neoplasm of breast (principal); R92.323 Mammographic fibroglandular density, bilateral breasts
CPT/HCPCS: 77063; 77067